=== PATIENT | female | born 1990 | race Caucasian/White ===

== ENCOUNTER → 2019-11-15 10:18 | Outpatient (CLI) | payer OTHER, SELFPAY ==
--- NOTE | 2019-11-15 10:29 | US_ITS ---
STUDY: ABDOMINAL ULTRASOUND REASON FOR EXAM: Female, 29 years old. ABD PAIN, RLQ PAIN TECHNIQUE: Transabdominal ultrasound was performed with real-time and static pruitt scale imaging. TECHNICAL QUALITY: Adequate. COMPARISON: None. FINDINGS: Liver: The liver measures 15.5 cm. There is normal echogenicity of the liver. The bile ducts are within normal limits. There is hepatic color flow. The direction of portal flow is hepatopetal. There is no demonstrated mass lesion. Portal vein measurement: Gallbladder: Normal distended gallbladder. The gallbladder wall measures 1.5 mm. There is a negative sonographic Aldana''s sign. There is no pericholecystic fluid. There are no gallstones. Common Bile Duct (C.B.D.): The common bile duct measures 3.4 mm. Pancreas: Normal size of the head, body and tail of the pancreas. There is normal echogenicity of the pancreas. There is no demonstrated pancreatic mass or cyst. Spleen: Normal size of the spleen. The spleen measures 10.5 cm x 3.1 cm x 4.5 cm. Right Kidney: Normal size of the right kidney. The right kidney measures 10.5 cm x 5.1 cm x 3.4 cm. Normal renal cortex. The right cortex measures 1.0 cm. There is no demonstrated renal mass or cyst. There is no right hydronephrosis. Left Kidney: Normal size of the left kidney. The left kidney measures 10.7 cm x 5.9 cm x 5.9 cm. Normal renal cortex. The left cortex measures 1.7 cm. There is no demonstrated renal mass or cyst. There is no left hydronephrosis. Aorta: Unremarkable I.V.C.: The IVC is patent. There is no ascites. US/Abdomen Complete IMPRESSION: Normal abdominal ultrasound examination. Electronically Signed: Rupert Smith, at 13:47 EDT , Service support ,
--- NOTE | 2019-11-15 10:34 | US_ITS ---
STUDY: THYROID ULTRASOUND REASON FOR EXAM: Female, 29 years old. GOITER TECHNIQUE: Ultrasound evaluation of the thyroid was performed with real-time and static pruitt-scale imaging. COMPARISON: None. FINDINGS: RIGHT LOBE: The right lobe of the thyroid gland is slightly enlarged and measures 5.1 cm x 1.2 cm x 0.9 cm. There is a homogeneous echotexture. There is a 3 mm x 3 mm x 3 mm solid hypoechoic nodule in the lower. LEFT LOBE: The left lobe of the thyroid gland measures 4.5 cm x 1.4 cm x 1.0 cm. There is a homogeneous echotexture. Numerous small cysts are seen. The largest measures 2 mm x 2 mm x 15 mm and is in the mid pole of the lobe. ISTHMUS: The isthmus measures 2.0 mm. The regional lymph nodes are normal. US/Thyroid IMPRESSION: Bilateral thyroid nodules. Electronically Signed: Rupert Smith, at 15:30 EDT , Service support ,
--- NOTE | 2019-11-15 12:51 | US_ITS ---
STUDY: ULTRASOUND OF THE FEMALE PELVIS - COMPLETE REASON FOR EXAM: Female, 29 years old. RLQ PAIN LMP: 10/23/2019. TECHNIQUE: Transabdominal and Transvaginal TECHNICAL QUALITY: Adequate. COMPARISON: None. FINDINGS: The uterus is anteverted and is tilted to the left side of the pelvis. The uterus measures 7.6 cm x 4.3 cm x 3.3 cm. Normal uterine cervix. The endometrium measures 5.0 mm in thickness, and is . There is no demonstrated endometrial mass. There is no demonstrated myometrial mass. I.U.D. - The patient does not have an I.U.D. The right ovary is visualized. The right ovary measures 3 cm x 2.5 cm x 2.5 cm. There is a 2.2 cm x 2.2 cm x 1.7 cm complex cyst in the right ovary. Follow-up is recommended. There is no visualized right adnexal mass or complex lesion. There is normal arterial and normal venous vascularity. The left ovary is visualized. The left ovary measures 2 cm x 1.3 cm x 2.6 cm. There is no left ovarian cyst or ovarian mass. There is no visualized left adnexal mass or complex lesion. There is normal arterial and normal venous vascularity. There is no fluid in the cul-de-sac. US/Transvaginal Non- IMPRESSION: 2.2 cm x 2.2 cm x 1.7 cm complex cyst in the right ovary. Sonographic follow-up is recommended. Electronically Signed: Rupert Smith, at 15:13 EDT , Service support ,
== END ==
PROVIDERS: PCP Nurse Practitioner; Referring Provider Nurse Practitioner; Visit Provider Nurse Practitioner
DX: E04.9 Nontoxic goiter, unspecified (principal); R10.31 Right lower quadrant pain
CPT/HCPCS: 76536; 76700; 76830; 93976

== ENCOUNTER → 2019-12-24 | Outpatient (CLI) | payer OTHER, SELFPAY ==
[2019-12-23 13:04] VITALS: BMI 27.1
[2019-12-24 17:53] LABS: Estradiol 75.2 pg/mL; Follicle Stimulating Hormone 5.9 mIU/mL; Luteinizing Hormone 5.6 mIU/mL
[2019-12-25 08:51] LABS: Rubella IgG 42.2 IU/mL
[2019-12-27 01:42] LABS: V-Zoster IgG (Immunity) 931 index (Immune >165)
== END | disposition home or self-care (01) ==
LOC: WOBLAB 16:15
PROVIDERS: PCP Nurse Practitioner; Visit Provider Student in an Organized Health Care Education/Training Program
DX: N97.9 Female infertility, unspecified (principal)
CPT/HCPCS: 36415; 82670; 83001; 83002; 86762; 86787

== ENCOUNTER → 2020-01-10 | Outpatient (CLI) | payer OTHER, SELFPAY ==
[2019-12-23 13:04] VITALS: BMI 27.1
[2020-01-10 11:04] LABS: Progesterone Level 13.27 ng/mL (See Comment)
== END | disposition home or self-care (01) ==
LOC: WOBLAB 09:49
PROVIDERS: PCP Nurse Practitioner; Visit Provider Student in an Organized Health Care Education/Training Program
DX: N92.6 Irregular menstruation, unspecified (principal)
CPT/HCPCS: 36415; 84144

== ENCOUNTER → 2022-12-27 | Outpatient (CLI) | payer OTHER, SELFPAY ==
--- NOTE | 2022-12-27 12:43 | US_ITS ---
STUDY: THYROID ULTRASOUND REASON FOR EXAM: Female, 32 years old. NONTOXIC MULTINODULAR GOITER TECHNIQUE: Ultrasound evaluation of the thyroid was performed with real-time and static pruitt-scale imaging. COMPARISON: Comparison is made with prior study November 15, 2019. FINDINGS: RIGHT LOBE: The right lobe of the thyroid gland measures 4.8 cm x 1.3 cm x 1.5 cm. There is a homogeneous echotexture. 5 mm x 4 mm x 4 mm solid/cystic nodule in the lower pole. Previously, it measured 3 mm x 3 mm x 3 mm LEFT LOBE: The left lobe of the thyroid gland measures 4 cm x 1.3 cm x 1.1 cm. There is a homogeneous echotexture. A 3 mm x 2 mm x 1 mm solid/cystic nodule in the lower pole. There has been essentially no change. ISTHMUS: The isthmus measures 1 mm. The regional lymph nodes are normal. US/Thyroid IMPRESSION: Essentially stable examination. Electronically Signed: Rupert Smith MD at 13:29 EDT ,
== END | disposition home or self-care (01) ==
LOC: US 12:33
PROVIDERS: PCP Nurse Practitioner Family; Referring Provider Nurse Practitioner Family; Visit Provider Nurse Practitioner Family
DX: E04.2 Nontoxic multinodular goiter (principal)
CPT/HCPCS: 76536

== ENCOUNTER → 2023-06-19 | Outpatient (CLI) | payer OTHER, SELFPAY ==
--- OUTSIDE RECORDS SUMMARY | 2023-06-19 20:37 | XMS RPT_ITS | CCD ---
Author Name Unknown Address [address] [place] [address] Organization [facility] Care Team Providers Care Light Oil Operator Name Role Phone Steph Rausch Unavailable Marvin Horan Unavailable Darryl Aly Unavailable Unavailable Tiffanie Whitfield Unavailable Manuel Covarrubias Unavailable Unavailable Unavailable CHARLI Kimblal Unavailable Unavailable Jessie Lynch Unavailable Ligia Mathis Unavailable Unavailable Steph Rausch CNP Unavailable Tiffanie Whitfield Unavailable Brian Abreu Unavailable Dr. Marvin Horan Unavailable Manuel Covarrubias MD Unavailable Yanira Aldana MA Unavailable Unavailable Jovita Grady LPN Unavailable Unavailable Unavailable Unavailable Ligia Mathis LPN Unavailable Unavailable Jessie Lynch MD Unavailable Steph Rausch Unavailable Jessie Lynch MD Unavailable Steph Rausch Unavailable SELF, SELF Referring Unavailable EDISON GAGE Attending Unavailable EDISON GAGE Attending Unavailable SELF, SELF Referring Unavailable EDISON GAGE Attending Unavailable SELF, SELF Referring Unavailable EDISON GAGE Attending Unavailable SELF, SELF Referring Unavailable SELF, SELF Referring Unavailable EDISON GAGE Attending Unavailable Darryl Vallejo LPN Unavailable Unavailable Sarah Moe CNP Unavailable Sarah Moe CNP Unavailable Bettina Cardenas Unavailable Unavailable Primary Care Provider UnavailJENNIFER Wells Attending Unavail able Sofie Hendrix CMA Unavailable Unavailable Tiffanie Whitfield Unavailable Steph Rausch Referring Unavailable Sarah Moe CNP Attending Unavailable Sarah Moe CNP Consulting Unavailable Allergies Allergy Classification Reported Allergen(s) Allergy Type Date of Onset Reaction(s) Facility (20 sources) Penicillins; Translations: [Penicillins] Allergy to substance (finding) [address] [facility] Work Phone: Medications Current Medications Medication Drug Class(es) Dates Sig (Normalized) Sig (Original) 24 hr amphetamine aspartate 5 mg / amphetamine sulfate 5 mg / dextroamphetamine saccharate 5 mg / dextroamphetamine sulfate 5 mg extended release oral capsule (20 sources) Central Nervous System Stimulant Start: 01-27-2023 Adderall XR 20 mg oral Capsule, Extended Release 24 hr 1 Capsule 2 times per day approximately 6 hours apart for 0 days Quantity: 60 {Capsule} Refills: 0 Ordered: 27-Jan-2023 Cris NAVARRETE, Jessie Vale Start : 27-Jan-2023 Active Comments: sixtyfill for 03-25-23 Completed/Discontinued Medications Medication Drug Class(es) Dates Sig (Normalized) Sig (Original) cholecalciferol 0.05 mg oral capsule (20 sources) Vitamin D Start: 03-08-2021 End: 06-18-2021 take 1 capsule by mouth once daily Vitamin D3 50 MCG (1999 UT) Oral Capsule 1 (one) Capsule daily for 0 days Quantity: 30 {Capsule} Refills: 0 Ordered: 18-Jun-2021 Ligia Mathis LPN Start : 08-Mar-2021 End : 18-Jun-2021 Inactive ciprofloxacin 500 mg oral tablet (16 sources) Quinolone Antimicrobial Start: 01-25-2022 End: 01-30-2022 take 1 tablet by mouth twice daily Cipro 500 MG Oral Tablet 1 (one) Tablet bid for 5 days Quantity: 10 {Tablet} Refills: 0 Ordered: 25-Jan-2022 Ligia Mathis LPN Start : 25-Jan-2022 End : 30-Jan-2022 Inactive ergocalciferol 1.25 mg oral capsule (20 sources) Provitamin D2 Compound Start: 11-25-2019 End: 02-23-2021 Ergocalciferol 1.25 MG (48299 UT) Oral Capsule 1 (one) Capsule twice weekly x 3 months for 0 days Quantity: 24 {Capsule} Refills: 0 Ordered: 23-Feb-2021 Jovita Grady LPN Start : 25-Nov-2019 End : 23-Feb-2021 Inactive FLUoxetine 20 mg oral capsule (20 sources) Serotonin Reuptake Inhibitor Start: 11-08-2019 End: 02-23-2021 take 2 capsules by mouth once daily FLUoxetine HCl 20 MG Oral Capsule 2 (two) Capsule daily for 0 days Quantity: 60 {Capsule} Refills: 3 Ordered: 23-Feb-2021 Jovita Grady LPN Start : 08-Nov-2019 End : 23-Feb-2021 Inactive lisdexamfetamine dimesylate 50 mg oral capsule (11 sources) Central Nervous System Stimulant Start: 09-07-2022 End: 10-31-2022 take 1 capsule by mouth before breakfast Vyvanse 50 mg oral capsule 1 Capsule every morning for 0 days Quantity: 30 {Capsule} Refills: 0 Ordered: 07-Sep-2022 Jessie Lynch MD Start : 07-Sep-2022 End : 31-Oct-2022 Discontinued Comments: thirty Problems Active Problems Problem Classification Problem Date Documented Da te Episodic/Chronic Abdominal pain (20 sources) Right lower quadrant pain; Translations: [Right lower quadrant abdominal pain] 11-08-2019 Episodic Past or Other Problems Problem Classification Problem Date Documented Da te Episodic/Chronic Deficiency and other anemia (20 sources) Deficiency and other anemia Diabetes mellitus without complication (10 sources) Diabetes mellitus without complication Mood disorders (20 sources) Mood disorders Ovarian cyst (14 sources) Complex cyst of right ovary; Translations: [Complex cyst of right ovary] 11-20-2019 Unclassified (20 sources) Abortions/Miscarriages ; Translations: [Abortions/Miscarriage s] 11-08-2019 Results Test Name Value Interpretation Reference Range Facil ity Vital Signs Date Time Vital Sign Value Performing Clinician Facility 07-13-2022 11:16-0400 Body height 168.28 cm Ligia Slarb SOCIAL WORKER [employer]IN[employer]VENT[employer] [facility] Work Phone: 07-13-2022 11:16-0400 Body mass index (BMI) [Ratio] 32.68 kg/m2 Ligia Mathis SOCIAL WORKER [employer]IN[employer] PREVENT[employer] [facility] Work Phone: 07-13-2022 11:16-0400 Body surface area Derived from formula 2.02 m2 Ligia Mathis SOCIAL WORKER [employer]IN[employer] PRE[employer] [facility] Work Phone: 07-13-2022 11:16-0400 Body temperature 97.8 [degF] Ligia Mathis SOCIAL WORKER [employer]IN[employer] [facility] Work Phone: Encounters Encounter Date Encounter Type Care Provider Facility Start: 01-27-2023 End: 01-27-2023 Office outpatient visit 10 minutes Sarah Moe CNP Work Phone: [facility] Start: 12-21-2022 End: 01-02-2023 Phone Encounter Sarah Moe CNP Work Phone: [facility] Start: 12-21-2022 Review Sarah Moe CNP Work Phone: [facility] Start: 12-21-2022 End: 12-21-2022 Annotation/Addendum Sarah Moe CNP Work Phone: [facility] Start: 10-31-2022 End: 10-31-2022 Office outpatient visit 10 minutes Sarah Moe CNP Work Phone: [facility] Start: 07-13-2022 Review Sarah Moe CNP Work Phone: [facility] Start: 07-13-2022 End: 07-25-2022 Office outpatient visit 15 minutes Sarah Moe CNP Work Phone: [facility] Start: 07-05-2022 ambulatory Steph Cosby [facility] Start: 07-05-2022 End: 07-05-2022 Office outpatient visit 10 minutes Sarah Moe CNP Work Phone: [facility] Start: 05-06-2022 End: 05-06-2022 Phone Encounter Sarah Moe CNP Work Phone: [facility] Start: 02-09-2022 End: 02-09-2022 ambulatory JENNIFER CACERES Facility:[facility] Start: 02-09-2022 End: 02-09-2022 Patient encounter procedure Jennifer Caceres MD Work Phone: OB/Gynecology Procedures Date Procedure Procedure Detail Performing Clinician Start: 12-27-2022 End: 12-27-2022 Thyroid Procedure Note: See Note; NOTES: [facility] Imaging Services [address] [place] [address] Thyroid MR#: [id number] Acct: [id number] Name: EL VALVERDE Rep #: [id number] : 1990 F 32 From: Rupert nettles MD PCP: TARIK Prescott Status: [facility] CLI Study: Thyroid Date of Exam: 12/27/22 Exam# [id number] Ordering Dr: Sarah Moe NP-C [id number] STUDY: THYROID ULTRASOUND REASON FOR EXAM: Female, 32 years old. NONTOXIC MULTINODULAR GOITER TECHNIQUE: Ultrasound evaluation of the thyroid was performed with real-time and static pruitt-scale imaging. COMPARISON: Comparison is made with prior study November 15, 2019. FINDINGS: RIGHT LOBE: The right lobe of the thyroid gland measures 4.8 cm x 1.3 cm x 1.5 cm. There is a homogeneous echotexture. 5 mm x 4 mm x 4 mm solid/cystic nodule in the lower pole. Previously, it measured 3 mm x 3 mm x 3 mm LEFT LOBE: The left lobe of the thyroid gland measures 4 cm x 1.3 cm x 1.1 cm. There is a homogeneous echotexture. A 3 mm x 2 mm x 1 mm solid/cystic nodule in the lower pole. There has been essentially no change. ISTHMUS: The isthmus measures 1 mm. The regional lymph nodes are normal. US/Thyroid IMPRESSION: Essentially stable examination. Electronically Signed: Rupert Smith MD at 13:29 EDT Reading Location ID and State: [address] [place] [address] , Service support , CC: TARIK Moe Tire Builder Heavy Service: Signed Sarah Moe BRINE SUPERVISOR Work Phone: Start: 12-23-2019 End: 12-24-2019 Surgery Visit Report Comments: See Note; NOTES: [facility] [address] [place], [place] [address]. [address] [place] [address] OFFICE VISIT Date of Service: 12/23/19 MR#: [id number] Acct: [id number] Name: EL PEREZ Rep #: [id number] : 1990 Provider: Dr. Manuel miller MD Age/Sex: 29/F Location: [facility] Status: Signed Intake Vital Signs 12/23/19 Height 5 ft 6 in 12/23/19 Weight: 168 lb 9 oz 12/23/19 BP 114/78 12/23/19 Blood Pressure Location Rt brachial 12/23/19 Position Sitting 12/23/19 Respiration 16 12/23/19 Pulse 79 12/23/19 Temp 97.7 F L 12/23/19 Temp Source Temporal 12/23/19 Pulse Oximetry (%) 100 12/23/19 Oxygen Delivery Method room air Intake Visit Reasons: THYROID NODULES Chief Complaint: thyroid nodules Resource Conservation Manager Required: No Is patient in pain?: No Allergies Penicillins Allergy (Mild, Verified 12/23/19 13:05) hives Medications dextroamphetamine-amphetam ine 5 mg tablet tab PO 12/23/19 [History Confirmed 12/23/19] ergocalciferol (vitamin D2) 1,250 mcg (50,000 unit) capsule cap PO 12/23/19 [History Confirmed 12/23/19] fluoxetine 20 mg capsule cap PO 12/23/19 [History Confirmed 12/23/19] Is last menstrual period known: No Post menopausal: No Patient : No PFSH Medical History Anxiety and depression (Acute) Back pain (Acute) Thyroid nodule (Acute) Surgical History History of dilation and curettage (Acute 2010) Family History Father Heart disease Diabetes Cancer skin Mother Thyroid disorder Cancer thyroid HPI HPI HPI: EL PEREZ, is a 29 F who presents to the office today for HPI HPI HPI: EL PEREZ, is a 29 F who presents to the office today for For evaluation of an abnormal thyroid ultrasound. Patient had a thyroid ultrasound completed at [facility] on 11/15/2019. This showed there to be a 3 mm solid nodule on the right lobe and a 2 mm nodule in the left lobe. There was a typo mistake in the report stating that it was 15 mm but in reviewing the actual films it was 1.5 mm. Patient does have a family history of thyroid cancer in her mother. ROS General General: Yes fatigue; no weight change, appetite, colon cancer, breast cancer or weakness HEENT HEENT: Yes swollen glands; no difficulty swallowing, eye injury, eye surgery or hoarseness Endo Endocrine: No thyroid disease, diabetes mellitus, thyroid cancer, Hair loss, heat intolerance or cold intolerance Musc Musculoskeletal: Yes back problems; no arthritis, rheumatoid arthritis, gout or joint pain Cardio Cardiovascular: No murmur, pacemaker, heart disease, atrial fibrillation, high blood pressure, heart attack, heart stent, palpitations, shortness of breat with exertion or chest pain Psych Psychiatric: Yes depression and anxiety; no hearing voices Resp Respiratory: No shortness of breath, No sleep apnea, No cough, No COPD, No asthma, No emphysema, No wheezing Gastro Gastrointestinal: Yes abdominal pain, No nausea or vomiting, No diarrhea, No constipation, No blood in stool, No acid reflux, No hemorrhoids, No ulcers, No gallbladder problem, No black,tarry stools Louie Hematologic: No blood thinners, No blood disorders, No bleeding, No anemia, No blood clots Neuro Neurologic: No weakness Exam Const General: no acute distress, well developed, well hydrated Orientation: oriented to person, oriented to place, oriented to time [facility] Head: normocephalic, atraumatic Ears: external ears normal Mouth: moist mucous membranes Other: Thyroid Exam: No hard nodules are palpated.No lymphadenopathy is palpated. Eyes Sclera: sclerae normal Pupils: normal by confrontation Neck Neck: no lymphadenopathy noted Neck mass: No Thyroid: thyroid normal, symmetrical Chest Chest palpation inspection: normal inspection of the chest Cardio Heart Sounds: no murmurs Assessment Plan Problems 1. Non-toxic multinodular goiter E04.2 Plan At this point there is nothing to biopsy here. She does not have a 15 mm nodule it is 1.5 mm. Given her history I think yearly thyroid ultrasounds are appropriate. And if her nodules get little bit larger than a half a centimeter then I think at least re-looking at this and possibly attempting a fine-needle aspiration would be appropriate. Coding Level of Care Code Off vis,new,level 3 Diagnoses Non-toxic multinodular goiter E04.2 12/24/19 1207 <Electronically signed by Manuel Nunez MD> Date Manuel Nunez MD Cosigner Signature: Date (if applicable) CC: MANAGER GASParvin Rausch Start: 11-15-2019 End: 11-15-2019 Transvaginal Non- Comments: See Note; NOTES: [facility] Imaging Services [address] [place] [address] Transvaginal Non- MR#: [id number] Acct: [id number] Name: EL PEREZ Rep #: [id number] : 1990 F 29 From: Rupert nettles MD PCP: TARIK Zimmerman Status: REG CLI Study: Transvaginal Non- Date of Exam: Exam# [id number] Ordering Dr: Steph Rausch STUDY: ULTRASOUND OF THE FEMALE PELVIS - COMPLETE REASON FOR EXAM: Female, 29 years old. RLQ PAIN LMP: 10/23/2019. TECHNIQUE: Transabdominal and Transvaginal TECHNICAL QUALITY: Adequate. COMPARISON: None. FINDINGS: The uterus is anteverted and is tilted to the left side of the pelvis. The uterus measures 7.6 cm x 4.3 cm x 3.3 cm. Normal uterine cervix. The endometrium measures 5.0 mm in thickness, and is . There is no demonstrated endometrial mass. There is no demonstrated myometrial mass. I.U.D. - The patient does not have an I.U.D. The right ovary is visualized. The right ovary measures 3 cm x 2.5 cm x 2.5 cm. There is a 2.2 cm x 2.2 cm x 1.7 cm complex cyst in the right ovary. Follow-up is recommended. There is no visualized right adnexal mass or complex lesion. There is normal arterial and normal venous vascularity. The left ovary is visualized. The left ovary measures 2 cm x 1.3 cm x 2.6 cm. There is no left ovarian cyst or ovarian mass. There is no visualized left adnexal mass or complex lesion. There is normal arterial and normal venous vascularity. There is no fluid in the cul-de-sac. US/Transvaginal Non- IMPRESSION: 2.2 cm x 2.2 cm x 1.7 cm complex cyst in the right ovary. Sonographic follow-up is recommended. Electronically Signed: Rupert Smith, at 15:13 EDT , Service support , CC: TARIK Rausch Tire Builder Heavy Service: Signed Steph Rausch Work Phone: Start: 11-15-2019 End: 11-15-2019 Thyroid Comments: See Note; NOTES: [facility] Imaging Services [address] [place] [address] Thyroid MR#: [id number] Acct: [id number] Name: EL PEREZ Rep #: [id number] : 1990 F 29 From: Rupert nettles MD PCP: TARIK Zimmerman Status: REG CLI Study: Thyroid Date of Exam: 11/15/19 Exam# [id number] Ordering Dr: Steph Rausch STUDY: THYROID ULTRASOUND REASON FOR EXAM: Female, 29 years old. GOITER TECHNIQUE: Ultrasound evaluation of the thyroid was performed with real-time and static pruitt-scale imaging. COMPARISON: None. FINDINGS: RIGHT LOBE: The right lobe of the thyroid gland is slightly enlarged and measures 5.1 cm x 1.2 cm x 0.9 cm. There is a homogeneous echotexture. There is a 3 mm x 3 mm x 3 mm solid hypoechoic nodule in the lower. LEFT LOBE: The left lobe of the thyroid gland measures 4.5 cm x 1.4 cm x 1.0 cm. There is a homogeneous echotexture. Numerous small cysts are seen. The largest measures 2 mm x 2 mm x 15 mm and is in the mid pole of the lobe. ISTHMUS: The isthmus measures 2.0 mm. The regional lymph nodes are normal. US/Thyroid IMPRESSION: Bilateral thyroid nodules. Electronically Signed: Rupert Smith, at 15:30 EDT , Service support , CC: TARIK Rausch Tire Builder Heavy Service: Signed Stpeh Rausch Work Phone: Start: 11-15-2019 End: 11-15-2019 Abdomen Complete Comments: See Note; NOTES: [facility] Imaging Services [address] [place] [address] Abdomen Complete MR#: [id number] Acct: [id number] Name: EL PEREZ Rep #: [id number] : 1990 F 29 From: Rupert nettles MD PCP: TARIK Zimmerman Status: REG CLI Study: Abdomen Complete Date of Exam: 11/15/19 Exam# [id number] Ordering Dr: Steph Rausch STUDY: ABDOMINAL ULTRASOUND REASON FOR EXAM: Female, 29 years old. ABD PAIN, RLQ PAIN TECHNIQUE: Transabdominal ultrasound was performed with real-time and static pruitt scale imaging. TECHNICAL QUALITY: Adequate. COMPARISON: None. FINDINGS: Liver: The liver measures 15.5 cm. There is normal echogenicity of the liver. The bile ducts are within normal limits. There is hepatic color flow. The direction of portal flow is hepatopetal. There is no demonstrated mass lesion. Portal vein measurement: Gallbladder: Normal distended gallbladder. The gallbladder wall measures 1.5 mm. There is a negative sonographic Aldana''s sign. There is no pericholecystic fluid. There are no gallstones. Common Bile Duct (C.B.D.): The common bile duct measures 3.4 mm. Pancreas: Normal size of the head, body and tail of the pancreas. There is normal echogenicity of the pancreas. There is no demonstrated pancreatic mass or cyst. Spleen: Normal size of the spleen. The spleen measures 10.5 cm x 3.1 cm x 4.5 cm. Right Kidney: Normal size of the right kidney. The right kidney measures 10.5 cm x 5.1 cm x 3.4 cm. Normal renal cortex. The right cortex measures 1.0 cm. There is no demonstrated renal mass or cyst. There is no right hydronephrosis. Left Kidney: Normal size of the left kidney. The left kidney measures 10.7 cm x 5.9 cm x 5.9 cm. Normal renal cortex. The left cortex measures 1.7 cm. There is no demonstrated renal mass or cyst. There is no left hydronephrosis. Aorta: Unremarkable I.V.C.: The IVC is patent. There is no ascites. US/Abdomen Complete IMPRESSION: Normal abdominal ultrasound examination. Electronically Signed: Rupert Smith, at 13:47 EDT , Service support , CC: TARIK Rausch Tire Builder Heavy Service: Signed Steph Rausch Work Phone: D&C Darryl Aly Plan of Treatment Date Care Activity Detail Author Start: 07-13-2022 Procedure Education Eprescribed prescriptions (G8553) [facility] Work Phone: Start: 07-13-2022 Urnls dip stick/tablet reagent auto microscopy Urinalysis, Complete W/ Microscopic Examination with reflex to urine culture, routine (80986) [facility] Work Phone: Start: 02-09-2022 End: 02-09-2023 PELVIC US WHI PELVIC US WHI Anc Imaging Routine Adnexal fullness Pelvic pain in female Expected: 02/09/2022, Expires: 02/09/2023 [facility] Work Phone: Payers Date Payer Category Payer Unknown 2021 Unknown [id number] 1990 Unknown [id number] Social History Date Type Detail Facility Alcohol Use Alcohol Use [facility] Work Phone: Clinical Notes 02-09-2022 Jennifer Caceres MD - 02/09/2022 9:06 AM EDT Note Date & Type Note Facility 02-09-2022 Note HNO ID: [id number] Author: Jennifer Caceres MD Service: ? Author Type: Physician Type: Progress Notes Filed: 02/09/2022 10:02 AM Note Text: Space Technologist offered: Patient declines. HPI: El Valverde is a 31 year old female with a hx of IBS and recurrent UTIs presents for vaginal bleeding. Pt had a UTI January 19 and was given Cipro. While being treated for the UTI, she began having light bleeding for 3 days. Reports this is the only episode of irregular bleeding. Reports her period is moderate flow, occurs every 28 days, and last for 5-6 days. She also reports RLQ pain with radiation to the LLQ. She describes the pain as sharp and is intermittent. She notes the pain is worsened by laying down or by applying pressure to the area. Reports having an ultrasound and an abdominal CT that showed an ovarian cyst that resolved on its own. Denies taking anything for the pain. Denies using control. Denies irregular bleeding in the past. Denies any vaginal discharge, dysuria or fevers. Pt reports no vaginal odor, discharge, itching or burning but does request std screening. Pt reports no painful sex or bleeding with sex. Pt offers no other concerns today. Patient reports is not taking any hormones for contraception and declines any hormonal therapy or contraception options today. OB History No obstetric history on file. Grants Officer History LMP: 01/19/2022, Having periods Age at Menarche: Age at First : Age at Menopause: Grants Officer History Comments: Sexual Activity: Yes; Male Contraception: No contraception data on record No past medical history on file. PAST SURGICAL HISTORY Procedure Laterality Date DANDC, DIAG AND/OR THERAPEUTIC 2009 missed ab No family history on file. Social History Tobacco Use Smoking status: Never Smokeless tobacco: Never Vaping Use Vaping Use: Never used Substance Use Topics Drug use: Never Current Outpatient Medications Medication Sig TRULANCE 3 mg tablet dextroamphetamine-amphetamine (ADDERALL) 5 mg tablet Take 5 mg by mouth. No current facility-administered medications for this visit. Allergies As of Date: 02/09/2022 Allergen Noted Reaction PENICILLINS 12/23/2019 Hives Fully Assessed 02/09/2022 REVIEW OF SYSTEMS Abdomen: No bloating, early satiety, indigestion, or increased flatulence. No abdominal pain, nausea, vomiting, diarrhea, or constipation. Bladder: No dysuria, gross hematuria, urinary frequency, urinary urgency, or incontinence. Breast: No breast lumps, nipple d/c, overlying skin changes, redness or skin retraction. Expanded ROS: N/A Allergies and current medication updated:Yes EXAM: BP 100/60 Wt 205 lb (93.0kg) LMP 01/19/2022 GENERAL: pleasant, female in no apparent distress HEENT: Normocephalic, atraumatic, mucus membranes moist, and no lesions NECK: full range of motion DERMATOLOGY: Normal, without lesions, non-icteric, and non-hirsute ABDOMEN: soft, non-tender, and no masses PELVIC: external genitalia normal, normal Bartholin's glands, urethra, Western's glands, no vulvar lesions, no cervical lesions, good vaginal support, physiologic discharge present, normal appearing perineal body and perianal region BIMANUAL: uterus normal size, shape and consistency and right adnexal fullness, tender to palpation NEURO: alert and oriented x3,exam grossly non-focal EXTREMITIES: normal ASSESSMENT AND PLAN: Encounter Diagnosis ICD-10-CM 1. Intermenstrual bleeding N92.3 2. Pelvic pain in female R10.2 PELVIC US WHI 3. Adnexal fullness N94.9 PELVIC US WHI 4. Encounter for screening for malignant neoplasm of cervix Z12.4 PAP FLUID CERVICAL SCREENING 5. Special screening examination for human papillomavirus (HPV) Z11.51 PAP FLUID CERVICAL SCREENING 6. Screen for STD (sexually transmitted disease) Z11.3 GC/CHLAMYDIA DNA DET 7. Reviewed causes of abnormal intermenstrual eating. Since there has only been one episode I do not feel that a full work-up is necessary at this time. Patient will continue to monitor and if that happens again to notify the office. We discussed her pelvic pain and possible right adnexal fullness recommend pelvic ultrasound to evaluate. Medical Decision Making: Problems: Moderate: New problem with uncertain prognosis Data: Unique test(s) ordered: 3+ Risk: Low: Low risk from testing/treatment Medical Decision Making Level: 4 - Moderate Jennifer Ireland MD [facility] 02-09-2022 History of Present illness Narrative Space Technologist offered: Patient declines. HPI: El Valverde is a 31 year old female with a hx of IBS and recurrent UTIs presents for vaginal bleeding. Pt had a UTI January 19 and was given Cipro. While being treated for the UTI, she began having light bleeding for 3 days. Reports this is the only episode of irregular bleeding. Reports her period is moderate flow, occurs every 28 days, and last for 5-6 days. She also reports RLQ pain with radiation to the LLQ. She describes the pain as sharp and is intermittent. She notes the pain is worsened by laying down or by applying pressure to the area. Reports having an ultrasound and an abdominal CT that showed an ovarian cyst that resolved on its own. Denies taking anything for the pain. Denies using control. Denies irregular bleeding in the past. Denies any vaginal discharge, dysuria or fevers. Pt reports no vaginal odor, discharge, itching or burning but does request std screening. Pt reports no painful sex or bleeding with sex. Pt offers no other concerns today. Patient reports is not taking any hormones for contraception and declines any hormonal therapy or contraception options today. OB History No obstetric history on file. [employer] History LMP: 01/19/2022, Having periods Age at Menarche: Age at First : Age at Menopause: [employer] History Comments: Sexual Activity: Yes; Male Contraception: No contraception data on record No past medical history on file. PAST SURGICAL HISTORY Procedure Laterality Date D&C, DIAG AND/OR THERAPEUTIC 2009 missed ab No family history on file. Social History Tobacco Use Smoking status: Never Smokeless tobacco: Never Vaping Use Vaping Use: Never used Substance Use Topics Drug use: Never Current Outpatient Medications Medication Sig TRULANCE 3 mg tablet dextroamphetamine-amphetamine (ADDERALL) 5 mg tablet Take 5 mg by mouth. No current facility-administered medications for this visit. Allergies As of Date: 02/09/2022 Allergen Noted Reaction PENICILLINS 12/23/2019 Hives Fully Assessed 02/09/2022 REVIEW OF SYSTEMS Abdomen: No bloating, early satiety, indigestion, or increased flatulence. No abdominal pain, nausea, vomiting, diarrhea, or constipation. Bladder: No dysuria, gross hematuria, urinary frequency, urinary urgency, or incontinence. Breast: No breast lumps, nipple d/c, overlying skin changes, redness or skin retraction. Expanded ROS: N/A Allergies and current medication updated:Yes EXAM: BP 100/60 Wt 205 lb (93.0kg) LMP 01/19/2022 GENERAL: pleasant, female in no apparent distress HEENT: Normocephalic, atraumatic, mucus membranes moist, and no lesions NECK: full range of motion DERMATOLOGY: Normal, without lesions, non-icteric, and non-hirsute ABDOMEN: soft, non-tender, and no masses PELVIC: external genitalia normal, normal Bartholin's glands, urethra, Western's glands, no vulvar lesions, no cervical lesions, good vaginal support, physiologic discharge present, normal appearing perineal body and perianal region BIMANUAL: uterus normal size, shape and consistency and right adnexal fullness, tender to palpation NEURO: alert and oriented x3,exam grossly non-focal EXTREMITIES: normal ASSESSMENT AND PLAN: Encounter Diagnosis ICD-10-CM 1. Intermenstrual bleeding N92.3 2. Pelvic pain in female R10.2 PELVIC US WHI 3. Adnexal fullness N94.9 PELVIC US WHI 4. Encounter for screening for malignant neoplasm of cervix Z12.4 PAP FLUID CERVICAL SCREENING 5. Special screening examination for human papillomavirus (HPV) Z11.51 PAP FLUID CERVICAL SCREENING 6. Screen for STD (sexually transmitted disease) Z11.3 GC/CHLAMYDIA DNA DET 7. Reviewed causes of abnormal intermenstrual eating. Since there has only been one episode I do not feel that a full work-up is necessary at this time. Patient will continue to monitor and if that happens again to notify the office. We discussed her pelvic pain and possible right adnexal fullness recommend pelvic ultrasound to evaluate. Medical Decision Making: Problems: Moderate: New problem with uncertain prognosis Data: Unique test(s) ordered: 3+ Risk: Low: Low risk from testing/treatment Medical Decision Making Level: 4 - Moderate Jennifer Ireland MD documented in this encounter [facility] Name Dates Details Patient Instructions Indication:Nonsmoker Start:08-Mar-2021 Instruction Type:Provider Instructions for Treatment How to Access Over [address] Femalesa [employer]udev Online using Patient Portal and 3rd [employer] Apps Indication:Nonsmoker Start:08-Mar-2021 Instruction Type:Patient Education Patient Instructions Indication:BMI 28.0-28.9,adult Start:23-Feb-2021 Instruction Type:Provider Instructions for Treatment How to Access Health Informa tion Online using Patient Portal and [employer]rd [employer] Apps Indication:BMI 28.0-28.9,adult Start:23-Feb-2021 Instruction Type:Patient Education Patient Instructions Indication:ADD (attention deficit disorder) Start:10-Dec-2020 Instruction Type:Provider Instructions for Treatment How to Access Health Informa tion Online using Patient Portal and [employer]rd [employer] Apps Indication:ADD (attention deficit disorder) Start:10-Dec-2020 Instruction Type:Patient Education Patient Instructions Indication:ADD (attention deficit disorder) Start:08-Jun-2020 Instruction Type:Provider Instructions for Treatment How to Access Health Informa tion Online using Patient Portal and [employer]rd [employer] Apps Indication:ADD (attention deficit disorder) Start:08-Jun-2020 Instruction Type:Patient Education How to access health informa tion online Indication:ADD (attention deficit disorder) Start:02-Dec-2019 Instruction Type:Patient Education How to access health informa tion online - Detail Indication:ADD (attention deficit disorder) Start:02-Dec-2019 Instruction Type:Patient Education Patient Instructions Indication:ADD (attention deficit disorder) Start:02-Dec-2019 Instruction Type:Provider Instructions for Treatment How to access health informa tion online Indication:Nonsmoker Start:25-Nov-2019 Instruction Type:Patient Education How to access health informa tion online - Detail Indication:Nonsmoker Start:25-Nov-2019 Instruction Type:Patient Education Patient Instructions Indication:BMI 26.0-26.9,adult Start:25-Nov-2019 Instruction Type:Provider Instructions for Treatment How to access health informa tion online Indication:Anxiety and depression Start:08-Nov-2019 Instruction Type:Patient Education How to access health informa tion online - Detail Indication:Anxiety and depression Start:08-Nov-2019 Instruction Type:Patient Education Patient Instructions Indication:Anxiety and depression Start:08-Nov-2019 Instruction Type:Provider Instructions for Treatment [facility]; [facility] Work Phone: Instructions* Name Dates Details Patient Instructions Indication:Nonsmoker Start:08-Mar-2021 Instruction Type:Provider Instructions for Treatment How to Access Health Informa tion Online using Patient Portal and [employer]rd [employer] Apps Indication:Nonsmoker Start:08-Mar-2021 Instruction Type:Patient Education Patient Instructions Indication:BMI 28.0-28.9,adult Start:23-Feb-2021 Instruction Type:Provider Instructions for Treatment How to Access Health Informa tion Online using Patient Portal and [employer]rd [employer] Apps Indication:BMI 28.0-28.9,adult Start:23-Feb-2021 Instruction Type:Patient Education Patient Instructions Indication:ADD (attention deficit disorder) Start:10-Dec-2020 Instruction Type:Provider Instructions for Treatment How to Access Health Informa tion Online using Patient Portal and [employer]rd [employer] Apps Indication:ADD (attention deficit disorder) Start:10-Dec-2020 Instruction Type:Patient Education Patient Instructions Indication:ADD (attention deficit disorder) Start:08-Jun-2020 Instruction Type:Provider Instructions for Treatment How to Access Health Informa tion Online using Patient Portal and [employer]rd [employer] Apps Indication:ADD (attention deficit disorder) Start:08-Jun-2020 Instruction Type:Patient Education How to access health informa tion online Indication:ADD (attention deficit disorder) Start:02-Dec-2019 Instruction Type:Patient Education How to access health informa tion online - Detail Indication:ADD (attention deficit disorder) Start:02-Dec-2019 Instruction Type:Patient Education Patient Instructions Indication:ADD (attention deficit disorder) Start:02-Dec-2019 Instruction Type:Provider Instructions for Treatment How to access health informa tion online Indication:Nonsmoker Start:25-Nov-2019 Instruction Type:Patient Education How to access health informa tion online - Detail Indication:Nonsmoker Start:25-Nov-2019 Instruction Type:Patient Education Patient Instructions Indication:BMI 26.0-26.9,adult Start:25-Nov-2019 Instruction Type:Provider Instructions for Treatment How to access health informa tion online Indication:Anxiety and depression Start:08-Nov-2019 Instruction Type:Patient Education How to access health informa tion online - Detail Indication:Anxiety and depression Start:08-Nov-2019 Instruction Type:Patient Education Patient Instructions Indication:Anxiety and depression Start:08-Nov-2019 Instruction Type:Provider Instructions for Treatment [facility]; [facility] Work Phone: Instructions* Name Dates Details Patient Instructions Indication:Nonsmoker Start:08-Mar-2021 Instruction Type:Provider Instructions for Treatment How to Access Health Informa tion Online using Patient Portal and [employer]rd [employer] Apps Indication:Nonsmoker Start:08-Mar-2021 Instruction Type:Patient Education Patient Instructions Indication:BMI 28.0-28.9,adult Start:23-Feb-2021 Instruction Type:Provider Instructions for Treatment How to Access Health Informa tion Online using Patient Portal and [employer]rd [employer] Apps Indication:BMI 28.0-28.9,adult Start:23-Feb-2021 Instruction Type:Patient Education Patient Instructions Indication:ADD (attention deficit disorder) Start:10-Dec-2020 Instruction Type:Provider Instructions for Treatment How to Access Health Informa tion Online using Patient Portal and [employer]rd [employer] Apps Indication:ADD (attention deficit disorder) Start:10-Dec-2020 Instruction Type:Patient Education Patient Instructions Indication:ADD (attention deficit disorder) Start:08-Jun-2020 Instruction Type:Provider Instructions for Treatment How to Access Health Informa tion Online using Patient Portal and [employer]rd [employer] Apps Indication:ADD (attention deficit disorder) Start:08-Jun-2020 Instruction Type:Patient Education How to access health informa tion online Indication:ADD (attention deficit disorder) Start:02-Dec-2019 Instruction Type:Patient Education How to access health informa tion online - Detail Indication:ADD (attention deficit disorder) Start:02-Dec-2019 Instruction Type:Patient Education Patient Instructions Indication:ADD (attention deficit disorder) Start:02-Dec-2019 Instruction Type:Provider Instructions for Treatment How to access health informa tion online Indication:Nonsmoker Start:25-Nov-2019 Instruction Type:Patient Education How to access health informa tion online - Detail Indication:Nonsmoker Start:25-Nov-2019 Instruction Type:Patient Education Patient Instructions Indication:BMI 26.0-26.9,adult Start:25-Nov-2019 Instruction Type:Provider Instructions for Treatment How to access health informa tion online Indication:Anxiety and depression Start:08-Nov-2019 Instruction Type:Patient Education How to access health informa tion online - Detail Indication:Anxiety and depression Start:08-Nov-2019 Instruction Type:Patient Education Patient Instructions Indication:Anxiety and depression Start:08-Nov-2019 Instruction Type:Provider Instructions for Treatment [facility]; [facility] Work Phone: Instructions* Name Dates Details Patient Instructions Indication:Nonsmoker Start:18-Jun-2021 Instruction Type:Provider Instructions for Treatment How to Access Health Informa tion Online using Patient Portal and [employer]rd [employer] Apps Indication:Nonsmoker Start:18-Jun-2021 Instruction Type:Patient Education Patient Instructions Indication:Nonsmoker Start:08-Mar-2021 Instruction Type:Provider Instructions for Treatment How to Access Health Informa tion Online using Patient Portal and [employer]rd [employer] Apps Indication:Nonsmoker Start:08-Mar-2021 Instruction Type:Patient Education Patient Instructions Indication:BMI 28.0-28.9,adult Start:23-Feb-2021 Instruction Type:Provider Instructions for Treatment How to Access Health Informa tion Online using Patient Portal and [employer]rd [employer] Apps Indication:BMI 28.0-28.9,adult Start:23-Feb-2021 Instruction Type:Patient Education Patient Instructions Indication:ADD (attention deficit disorder) Start:10-Dec-2020 Instruction Type:Provider Instructions for Treatment How to Access Health Informa tion Online using Patient Portal and [employer]rd [employer] Apps Indication:ADD (attention deficit disorder) Start:10-Dec-2020 Instruction Type:Patient Education Patient Instructions Indication:ADD (attention deficit disorder) Start:08-Jun-2020 Instruction Type:Provider Instructions for Treatment How to Access Health Informa tion Online using Patient Portal and [employer]rd [employer] Apps Indication:ADD (attention deficit disorder) Start:08-Jun-2020 Instruction Type:Patient Education How to access health informa tion online Indication:ADD (attention deficit disorder) Start:02-Dec-2019 Instruction Type:Patient Education How to access health informa tion online - Detail Indication:ADD (attention deficit disorder) Start:02-Dec-2019 Instruction Type:Patient Education Patient Instructions Indication:ADD (attention deficit disorder) Start:02-Dec-2019 Instruction Type:Provider Instructions for Treatment How to access health informa tion online Indication:Nonsmoker Start:25-Nov-2019 Instruction Type:Patient Education How to access health informa tion online - Detail Indication:Nonsmoker Start:25-Nov-2019 Instruction Type:Patient Education Patient Instructions Indication:BMI 26.0-26.9,adult Start:25-Nov-2019 Instruction Type:Provider Instructions for Treatment How to access health informa tion online Indication:Anxiety and depression Start:08-Nov-2019 Instruction Type:Patient Education How to access health informa tion online - Detail Indication:Anxiety and depression Start:08-Nov-2019 Instruction Type:Patient Education Patient Instructions Indication:Anxiety and depression Start:08-Nov-2019 Instruction Type:Provider Instructions for Treatment [facility]; [facility] Work Phone: Instructions* Name Dates Details Patient Instructions Indication:Nonsmoker Start:18-Jun-2021 Instruction Type:Provider Instructions for Treatment How to Access Health Informa tion Online using Patient Portal and [employer]rd [employer] Apps Indication:Nonsmoker Start:18-Jun-2021 Instruction Type:Patient Education Patient Instructions Indication:Nonsmoker Start:08-Mar-2021 Instruction Type:Provider Instructions for Treatment How to Access Health Informa tion Online using Patient Portal and [employer]rd [employer] Apps Indication:Nonsmoker Start:08-Mar-2021 Instruction Type:Patient Education Patient Instructions Indication:BMI 28.0-28.9,adult Start:23-Feb-2021 Instruction Type:Provider Instructions for Treatment How to Access Health Informa tion Online using Patient Portal and [employer]rd [employer] Apps Indication:BMI 28.0-28.9,adult Start:23-Feb-2021 Instruction Type:Patient Education Patient Instructions Indication:ADD (attention deficit disorder) Start:10-Dec-2020 Instruction Type:Provider Instructions for Treatment How to Access Health Informa tion Online using Patient Portal and [employer]rd [employer] Apps Indication:ADD (attention deficit disorder) Start:10-Dec-2020 Instruction Type:Patient Education Patient Instructions Indication:ADD (attention deficit disorder) Start:08-Jun-2020 Instruction Type:Provider Instructions for Treatment How to Access Health Informa tion Online using Patient Portal and [employer]rd [employer] Apps Indication:ADD (attention deficit disorder) Start:08-Jun-2020 Instruction Type:Patient Education How to access health informa tion online Indication:ADD (attention deficit disorder) Start:02-Dec-2019 Instruction Type:Patient Education How to access health informa tion online - Detail Indication:ADD (attention deficit disorder) Start:02-Dec-2019 Instruction Type:Patient Education Patient Instructions Indication:ADD (attention deficit disorder) Start:02-Dec-2019 Instruction Type:Provider Instructions for Treatment How to access health informa tion online Indication:Nonsmoker Start:25-Nov-2019 Instruction Type:Patient Education How to access health informa tion online - Detail Indication:Nonsmoker Start:25-Nov-2019 Instruction Type:Patient Education Patient Instructions Indication:BMI 26.0-26.9,adult Start:25-Nov-2019 Instruction Type:Provider Instructions for Treatment How to access health informa tion online Indication:Anxiety and depression Start:08-Nov-2019 Instruction Type:Patient Education How to access health informa tion online - Detail Indication:Anxiety and depression Start:08-Nov-2019 Instruction Type:Patient Education Patient Instructions Indication:Anxiety and depression Start:08-Nov-2019 Instruction Type:Provider Instructions for Treatment [facility]; [facility] Work Phone: Instructions* Name Dates Details Patient Instructions Indication:Nonsmoker Start:18-Jun-2021 Instruction Type:Provider Instructions for Treatment How to Access Health Informa tion Online using Patient Portal and [employer]rd [employer] Apps Indication:Nonsmoker Start:18-Jun-2021 Instruction Type:Patient Education Patient Instructions Indication:Nonsmoker Start:08-Mar-2021 Instruction Type:Provider Instructions for Treatment How to Access Health Informa tion Online using Patient Portal and [employer]rd [employer] Apps Indication:Nonsmoker Start:08-Mar-2021 Instruction Type:Patient Education Patient Instructions Indication:BMI 28.0-28.9,adult Start:23-Feb-2021 Instruction Type:Provider Instructions for Treatment How to Access Health Informa tion Online using Patient Portal and [employer]rd [employer] Apps Indication:BMI 28.0-28.9,adult Start:23-Feb-2021 Instruction Type:Patient Education Patient Instructions Indication:ADD (attention deficit disorder) Start:10-Dec-2020 Instruction Type:Provider Instructions for Treatment How to Access Health Informa tion Online using Patient Portal and [employer]rd [employer] Apps Indication:ADD (attention deficit disorder) Start:10-Dec-2020 Instruction Type:Patient Education Patient Instructions Indication:ADD (attention deficit disorder) Start:08-Jun-2020 Instruction Type:Provider Instructions for Treatment How to Access Health Informa tion Online using Patient Portal and [employer]rd [employer] Apps Indication:ADD (attention deficit disorder) Start:08-Jun-2020 Instruction Type:Patient Education How to access health informa tion online Indication:ADD (attention deficit disorder) Start:02-Dec-2019 Instruction Type:Patient Education How to access health informa tion online - Detail Indication:ADD (attention deficit disorder) Start:02-Dec-2019 Instruction Type:Patient Education Patient Instructions Indication:ADD (attention deficit disorder) Start:02-Dec-2019 Instruction Type:Provider Instructions for Treatment How to access health informa tion online Indication:Nonsmoker Start:25-Nov-2019 Instruction Type:Patient Education How to access health informa tion online - Detail Indication:Nonsmoker Start:25-Nov-2019 Instruction Type:Patient Education Patient Instructions Indication:BMI 26.0-26.9,adult Start:25-Nov-2019 Instruction Type:Provider Instructions for Treatment How to access health informa tion online Indication:Anxiety and depression Start:08-Nov-2019 Instruction Type:Patient Education How to access health informa tion online - Detail Indication:Anxiety and depression Start:08-Nov-2019 Instruction Type:Patient Education Patient Instructions Indication:Anxiety and depression Start:08-Nov-2019 Instruction Type:Provider Instructions for Treatment [facility]; [facility] Work Phone: Instructions* Name Dates Details Patient Instructions Indication:ADD (attention deficit disorder) Start:24-Dec-2021 Instruction Type:Provider Instructions for Treatment How to Access Health Informa tion Online using Patient Portal and [employer]rd [employer] Apps Indication:ADD (attention deficit disorder) Start:24-Dec-2021 Instruction Type:Patient Education Patient Instructions Indication:Nonsmoker Start:18-Jun-2021 Instruction Type:Provider Instructions for Treatment How to Access Health Informa tion Online using Patient Portal and [employer]rd [employer] Apps Indication:Nonsmoker Start:18-Jun-2021 Instruction Type:Patient Education Patient Instructions Indication:Nonsmoker Start:08-Mar-2021 Instruction Type:Provider Instructions for Treatment How to Access Health Informa tion Online using Patient Portal and [employer]rd [employer] Apps Indication:Nonsmoker Start:08-Mar-2021 Instruction Type:Patient Education Patient Instructions Indication:BMI 28.0-28.9,adult Start:23-Feb-2021 Instruction Type:Provider Instructions for Treatment How to Access Health Informa tion Online using Patient Portal and [employer]rd [employer] Apps Indication:BMI 28.0-28.9,adult Start:23-Feb-2021 Instruction Type:Patient Education Patient Instructions Indication:ADD (attention deficit disorder) Start:10-Dec-2020 Instruction Type:Provider Instructions for Treatment How to Access Health Informa tion Online using Patient Portal and [employer]rd [employer] Apps Indication:ADD (attention deficit disorder) Start:10-Dec-2020 Instruction Type:Patient Education Patient Instructions Indication:ADD (attention deficit disorder) Start:08-Jun-2020 Instruction Type:Provider Instructions for Treatment How to Access Health Informa tion Online using Patient Portal and [employer]rd [employer] Apps Indication:ADD (attention deficit disorder) Start:08-Jun-2020 Instruction Type:Patient Education How to access health informa tion online Indication:ADD (attention deficit disorder) Start:02-Dec-2019 Instruction Type:Patient Education How to access health informa tion online - Detail Indication:ADD (attention deficit disorder) Start:02-Dec-2019 Instruction Type:Patient Education Patient Instructions Indication:ADD (attention deficit disorder) Start:02-Dec-2019 Instruction Type:Provider Instructions for Treatment How to access health informa tion online Indication:Nonsmoker Start:25-Nov-2019 Instruction Type:Patient Education How to access health informa tion online - Detail Indication:Nonsmoker Start:25-Nov-2019 Instruction Type:Patient Education Patient Instructions Indication:BMI 26.0-26.9,adult Start:25-Nov-2019 Instruction Type:Provider Instructions for Treatment How to access health informa tion online Indication:Anxiety and depression Start:08-Nov-2019 Instruction Type:Patient Education How to access health informa tion online - Detail Indication:Anxiety and depression Start:08-Nov-2019 Instruction Type:Patient Education Patient Instructions Indication:Anxiety and depression Start:08-Nov-2019 Instruction Type:Provider Instructions for Treatment [facility]; [facility] Work Phone: Instructions* Name Dates Details Patient Instructions Indication:Nonsmoker Start:18-Jan-2022 Instruction Type:Provider Instructions for Treatment How to Access Health Informa tion Online using Patient Portal and [employer]rd [employer] Apps Indication:Nonsmoker Start:18-Jan-2022 Instruction Type:Patient Education Patient Instructions Indication:ADD (attention deficit disorder) Start:24-Dec-2021 Instruction Type:Provider Instructions for Treatment How to Access Health Informa tion Online using Patient Portal and [employer]rd [employer] Apps Indication:ADD (attention deficit disorder) Start:24-Dec-2021 Instruction Type:Patient Education Patient Instructions Indication:Nonsmoker Start:18-Jun-2021 Instruction Type:Provider Instructions for Treatment How to Access Health Informa tion Online using Patient Portal and [employer]rd [employer] Apps Indication:Nonsmoker Start:18-Jun-2021 Instruction Type:Patient Education Patient Instructions Indication:Nonsmoker Start:08-Mar-2021 Instruction Type:Provider Instructions for Treatment How to Access Health Informa tion Online using Patient Portal and [employer] Apps Indication:Nonsmoker Start:08-Mar-2021 Instruction Type:Patient Education Patient Instructions Indication:BMI 28.0-28.9,adult Start:23-Feb-2021 Instruction Type:Provider Instructions for Treatment How to Access Health Informa tion Online using Patient Portal and [employer] Apps Indication:BMI 28.0-28.9,adult Start:23-Feb-2021 Instruction Type:Patient Education Patient Instructions Indication:ADD (attention deficit disorder) Start:10-Dec-2020 Instruction Type:Provider Instructions for Treatment How to Access Health Informa tion Online using Patient Portal and [employer] Apps Indication:ADD (attention deficit disorder) Start:10-Dec-2020 Instruction Type:Patient Education Patient Instructions Indication:ADD (attention deficit disorder) Start:08-Jun-2020 Instruction Type:Provider Instructions for Treatment How to Access Health Informa tion Online using Patient Portal and [employer] Apps Indication:ADD (attention deficit disorder) Start:08-Jun-2020 Instruction Type:Patient Education How to access health informa tion online Indication:ADD (attention deficit disorder) Start:02-Dec-2019 Instruction Type:Patient Education How to access health informa tion online - Detail Indication:ADD (attention deficit disorder) Start:02-Dec-2019 Instruction Type:Patient Education Patient Instructions Indication:ADD (attention deficit disorder) Start:02-Dec-2019 Instruction Type:Provider Instructions for Treatment How to access health informa tion online Indication:Nonsmoker Start:25-Nov-2019 Instruction Type:Patient Education How to access health informa tion online - Detail Indication:Nonsmoker Start:25-Nov-2019 Instruction Type:Patient Education Patient Instructions Indication:BMI 26.0-26.9,adult Start:25-Nov-2019 Instruction Type:Provider Instructions for Treatment How to access health informa tion online Indication:Anxiety and depression Start:08-Nov-2019 Instruction Type:Patient Education How to access health informa tion online - Detail Indication:Anxiety and depression Start:08-Nov-2019 Instruction Type:Patient Education Patient Instructions Indication:Anxiety and depression Start:08-Nov-2019 Instruction Type:Provider Instructions for Treatment [facility]; [facility] Work Phone: Instructions* Name Dates Details Patient Instructions Indication:Nonsmoker Start:18-Jan-2022 Instruction Type:Provider Instructions for Treatment How to Access Health Informa tion Online using Patient Portal and [employer] Apps Indication:Nonsmoker Start:18-Jan-2022 Instruction Type:Patient Education Patient Instructions Indication:ADD (attention deficit disorder) Start:24-Dec-2021 Instruction Type:Provider Instructions for Treatment How to Access Health Informa tion Online using Patient Portal and [employer] Apps Indication:ADD (attention deficit disorder) Start:24-Dec-2021 Instruction Type:Patient Education Patient Instructions Indication:Nonsmoker Start:18-Jun-2021 Instruction Type:Provider Instructions for Treatment How to Access Health Informa tion Online using Patient Portal and [employer] Apps Indication:Nonsmoker Start:18-Jun-2021 Instruction Type:Patient Education Patient Instructions Indication:Nonsmoker Start:08-Mar-2021 Instruction Type:Provider Instructions for Treatment How to Access Health Informa tion Online using Patient Portal and [employer] Apps Indication:Nonsmoker Start:08-Mar-2021 Instruction Type:Patient Education Patient Instructions Indication:BMI 28.0-28.9,adult Start:23-Feb-2021 Instruction Type:Provider Instructions for Treatment How to Access Health Informa tion Online using Patient Portal and [employer] Apps Indication:BMI 28.0-28.9,adult Start:23-Feb-2021 Instruction Type:Patient Education Patient Instructions Indication:ADD (attention deficit disorder) Start:10-Dec-2020 Instruction Type:Provider Instructions for Treatment How to Access Health Informa tion Online using Patient Portal and [employer] Apps Indication:ADD (attention deficit disorder) Start:10-Dec-2020 Instruction Type:Patient Education Patient Instructions Indication:ADD (attention deficit disorder) Start:08-Jun-2020 Instruction Type:Provider Instructions for Treatment How to Access Health Informa tion Online using Patient Portal and [employer] Apps Indication:ADD (attention deficit disorder) Start:08-Jun-2020 Instruction Type:Patient Education How to access health informa tion online Indication:ADD (attention deficit disorder) Start:02-Dec-2019 Instruction Type:Patient Education How to access health informa tion online - Detail Indication:ADD (attention deficit disorder) Start:02-Dec-2019 Instruction Type:Patient Education Patient Instructions Indication:ADD (attention deficit disorder) Start:02-Dec-2019 Instruction Type:Provider Instructions for Treatment How to access health informa tion online Indication:Nonsmoker Start:25-Nov-2019 Instruction Type:Patient Education How to access health informa tion online - Detail Indication:Nonsmoker Start:25-Nov-2019 Instruction Type:Patient Education Patient Instructions Indication:BMI 26.0-26.9,adult Start:25-Nov-2019 Instruction Type:Provider Instructions for Treatment How to access health informa tion online Indication:Anxiety and depression Start:08-Nov-2019 Instruction Type:Patient Education How to access health informa tion online - Detail Indication:Anxiety and depression Start:08-Nov-2019 Instruction Type:Patient Education Patient Instructions Indication:Anxiety and depression Start:08-Nov-2019 Instruction Type:Provider Instructions for Treatment [facility]; [facility] Work Phone: Instructions* Name Dates Details Patient Instructions Indication:Nonsmoker Start:18-Jan-2022 Instruction Type:Provider Instructions for Treatment How to Access Health Informa tion Online using Patient Portal and [employer] Apps Indication:Nonsmoker Start:18-Jan-2022 Instruction Type:Patient Education Patient Instructions Indication:ADD (attention deficit disorder) Start:24-Dec-2021 Instruction Type:Provider Instructions for Treatment How to Access Health Informa tion Online using Patient Portal and [employer] Apps Indication:ADD (attention deficit disorder) Start:24-Dec-2021 Instruction Type:Patient Education Patient Instructions Indication:Nonsmoker Start:18-Jun-2021 Instruction Type:Provider Instructions for Treatment How to Access Health Informa tion Online using Patient Portal and [employer] Apps Indication:Nonsmoker Start:18-Jun-2021 Instruction Type:Patient Education Patient Instructions Indication:Nonsmoker Start:08-Mar-2021 Instruction Type:Provider Instructions for Treatment How to Access Health Informa tion Online using Patient Portal and [employer] Apps Indication:Nonsmoker Start:08-Mar-2021 Instruction Type:Patient Education Patient Instructions Indication:BMI 28.0-28.9,adult Start:23-Feb-2021 Instruction Type:Provider Instructions for Treatment How to Access Health Informa tion Online using Patient Portal and [employer] Apps Indication:BMI 28.0-28.9,adult Start:23-Feb-2021 Instruction Type:Patient Education Patient Instructions Indication:ADD (attention deficit disorder) Start:10-Dec-2020 Instruction Type:Provider Instructions for Treatment How to Access Health Informa tion Online using Patient Portal and [employer] Apps Indication:ADD (attention deficit disorder) Start:10-Dec-2020 Instruction Type:Patient Education Patient Instructions Indication:ADD (attention deficit disorder) Start:08-Jun-2020 Instruction Type:Provider Instructions for Treatment How to Access Health Informa tion Online using Patient Portal and [employer] Apps Indication:ADD (attention deficit disorder) Start:08-Jun-2020 Instruction Type:Patient Education How to access health informa tion online Indication:ADD (attention deficit disorder) Start:02-Dec-2019 Instruction Type:Patient Education How to access health informa tion online - Detail Indication:ADD (attention deficit disorder) Start:02-Dec-2019 Instruction Type:Patient Education Patient Instructions Indication:ADD (attention deficit disorder) Start:02-Dec-2019 Instruction Type:Provider Instructions for Treatment How to access health informa tion online Indication:Nonsmoker Start:25-Nov-2019 Instruction Type:Patient Education How to access health informa tion online - Detail Indication:Nonsmoker Start:25-Nov-2019 Instruction Type:Patient Education Patient Instructions Indication:BMI 26.0-26.9,adult Start:25-Nov-2019 Instruction Type:Provider Instructions for Treatment How to access health informa tion online Indication:Anxiety and depression Start:08-Nov-2019 Instruction Type:Patient Education How to access health informa tion online - Detail Indication:Anxiety and depression Start:08-Nov-2019 Instruction Type:Patient Education Patient Instructions Indication:Anxiety and depression Start:08-Nov-2019 Instruction Type:Provider Instructions for Treatment [facility]; [facility] Work Phone: Instructions* Name Dates Details Patient Instructions Indication:Nonsmoker Start:18-Jan-2022 Instruction Type:Provider Instructions for Treatment How to Access Health Informa tion Online using Patient Portal and [employer] Apps Indication:Nonsmoker Start:18-Jan-2022 Instruction Type:Patient Education Patient Instructions Indication:ADD (attention deficit disorder) Start:24-Dec-2021 Instruction Type:Provider Instructions for Treatment How to Access Health Informa tion Online using Patient Portal and [employer] Apps Indication:ADD (attention deficit disorder) Start:24-Dec-2021 Instruction Type:Patient Education Patient Instructions Indication:Nonsmoker Start:18-Jun-2021 Instruction Type:Provider Instructions for Treatment How to Access Health Informa tion Online using Patient Portal and [employer] Apps Indication:Nonsmoker Start:18-Jun-2021 Instruction Type:Patient Education Patient Instructions Indication:Nonsmoker Start:08-Mar-2021 Instruction Type:Provider Instructions for Treatment How to Access Health Informa tion Online using Patient Portal and [employer] Apps Indication:Nonsmoker Start:08-Mar-2021 Instruction Type:Patient Education Patient Instructions Indication:BMI 28.0-28.9,adult Start:23-Feb-2021 Instruction Type:Provider Instructions for Treatment How to Access Health Informa tion Online using Patient Portal and [employer] Apps Indication:BMI 28.0-28.9,adult Start:23-Feb-2021 Instruction Type:Patient Education Patient Instructions Indication:ADD (attention deficit disorder) Start:10-Dec-2020 Instruction Type:Provider Instructions for Treatment How to Access Health Informa tion Online using Patient Portal and [employer] Apps Indication:ADD (attention deficit disorder) Start:10-Dec-2020 Instruction Type:Patient Education Patient Instructions Indication:ADD (attention deficit disorder) Start:08-Jun-2020 Instruction Type:Provider Instructions for Treatment How to Access Health Informa tion Online using Patient Portal and [employer] Apps Indication:ADD (attention deficit disorder) Start:08-Jun-2020 Instruction Type:Patient Education How to access health informa tion online Indication:ADD (attention deficit disorder) Start:02-Dec-2019 Instruction Type:Patient Education How to access health informa tion online - Detail Indication:ADD (attention deficit disorder) Start:02-Dec-2019 Instruction Type:Patient Education Patient Instructions Indication:ADD (attention deficit disorder) Start:02-Dec-2019 Instruction Type:Provider Instructions for Treatment How to access health informa tion online Indication:Nonsmoker Start:25-Nov-2019 Instruction Type:Patient Education How to access health informa tion online - Detail Indication:Nonsmoker Start:25-Nov-2019 Instruction Type:Patient Education Patient Instructions Indication:BMI 26.0-26.9,adult Start:25-Nov-2019 Instruction Type:Provider Instructions for Treatment How to access health informa tion online Indication:Anxiety and depression Start:08-Nov-2019 Instruction Type:Patient Education How to access health informa tion online - Detail Indication:Anxiety and depression Start:08-Nov-2019 Instruction Type:Patient Education Patient Instructions Indication:Anxiety and depression Start:08-Nov-2019 Instruction Type:Provider Instructions for Treatment [facility]; [facility] Work Phone: Instructions* Name Dates Details Patient Instructions Indication:Nonsmoker Start:18-Jan-2022 Instruction Type:Provider Instructions for Treatment How to Access Health Informa tion Online using Patient Portal and [employer] Apps Indication:Nonsmoker Start:18-Jan-2022 Instruction Type:Patient Education Patient Instructions Indication:ADD (attention deficit disorder) Start:24-Dec-2021 Instruction Type:Provider Instructions for Treatment How to Access Health Informa tion Online using Patient Portal and [employer] Apps Indication:ADD (attention deficit disorder) Start:24-Dec-2021 Instruction Type:Patient Education Patient Instructions Indication:Nonsmoker Start:18-Jun-2021 Instruction Type:Provider Instructions for Treatment How to Access Health Informa tion Online using Patient Portal and [employer] Apps Indication:Nonsmoker Start:18-Jun-2021 Instruction Type:Patient Education Patient Instructions Indication:Nonsmoker Start:08-Mar-2021 Instruction Type:Provider Instructions for Treatment How to Access Health Informa tion Online using Patient Portal and [employer] Apps Indication:Nonsmoker Start:08-Mar-2021 Instruction Type:Patient Education Patient Instructions Indication:BMI 28.0-28.9,adult Start:23-Feb-2021 Instruction Type:Provider Instructions for Treatment How to Access Health Informa tion Online using Patient Portal and [employer] Apps Indication:BMI 28.0-28.9,adult Start:23-Feb-2021 Instruction Type:Patient Education Patient Instructions Indication:ADD (attention deficit disorder) Start:10-Dec-2020 Instruction Type:Provider Instructions for Treatment How to Access Health Informa tion Online using Patient Portal and [employer] Apps Indication:ADD (attention deficit disorder) Start:10-Dec-2020 Instruction Type:Patient Education Patient Instructions Indication:ADD (attention deficit disorder) Start:08-Jun-2020 Instruction Type:Provider Instructions for Treatment How to Access Health Informa tion Online using Patient Portal and [employer] Apps Indication:ADD (attention deficit disorder) Start:08-Jun-2020 Instruction Type:Patient Education How to access health informa tion online Indication:ADD (attention deficit disorder) Start:02-Dec-2019 Instruction Type:Patient Education How to access health informa tion online - Detail Indication:ADD (attention deficit disorder) Start:02-Dec-2019 Instruction Type:Patient Education Patient Instructions Indication:ADD (attention deficit disorder) Start:02-Dec-2019 Instruction Type:Provider Instructions for Treatment How to access health informa tion online Indication:Nonsmoker Start:25-Nov-2019 Instruction Type:Patient Education How to access health informa tion online - Detail Indication:Nonsmoker Start:25-Nov-2019 Instruction Type:Patient Education Patient Instructions Indication:BMI 26.0-26.9,adult Start:25-Nov-2019 Instruction Type:Provider Instructions for Treatment How to access health informa tion online Indication:Anxiety and depression Start:08-Nov-2019 Instruction Type:Patient Education How to access health informa tion online - Detail Indication:Anxiety and depression Start:08-Nov-2019 Instruction Type:Patient Education Patient Instructions Indication:Anxiety and depression Start:08-Nov-2019 Instruction Type:Provider Instructions for Treatment [facility]; [facility] Work Phone: Instructions* Name Dates Details Patient Instructions Indication:Nonsmoker Start:18-Jan-2022 Instruction Type:Provider Instructions for Treatment How to Access Health Informa tion Online using Patient Portal and [employer] Apps Indication:Nonsmoker Start:18-Jan-2022 Instruction Type:Patient Education Patient Instructions Indication:ADD (attention deficit disorder) Start:24-Dec-2021 Instruction Type:Provider Instructions for Treatment How to Access Health Informa tion Online using Patient Portal and [employer] Apps Indication:ADD (attention deficit disorder) Start:24-Dec-2021 Instruction Type:Patient Education Patient Instructions Indication:Nonsmoker Start:18-Jun-2021 Instruction Type:Provider Instructions for Treatment How to Access Health Informa tion Online using Patient Portal and [employer] Apps Indication:Nonsmoker Start:18-Jun-2021 Instruction Type:Patient Education Patient Instructions Indication:Nonsmoker Start:08-Mar-2021 Instruction Type:Provider Instructions for Treatment How to Access Health Informa tion Online using Patient Portal and [employer] Apps Indication:Nonsmoker Start:08-Mar-2021 Instruction Type:Patient Education Patient Instructions Indication:BMI 28.0-28.9,adult Start:23-Feb-2021 Instruction Type:Provider Instructions for Treatment How to Access Health Informa tion Online using Patient Portal and [employer] Apps Indication:BMI 28.0-28.9,adult Start:23-Feb-2021 Instruction Type:Patient Education Patient Instructions Indication:ADD (attention deficit disorder) Start:10-Dec-2020 Instruction Type:Provider Instructions for Treatment How to Access Health Informa tion Online using Patient Portal and [employer] Apps Indication:ADD (attention deficit disorder) Start:10-Dec-2020 Instruction Type:Patient Education Patient Instructions Indication:ADD (attention deficit disorder) Start:08-Jun-2020 Instruction Type:Provider Instructions for Treatment How to Access Health Informa tion Online using Patient Portal and [employer] Apps Indication:ADD (attention deficit disorder) Start:08-Jun-2020 Instruction Type:Patient Education How to access health informa tion online Indication:ADD (attention deficit disorder) Start:02-Dec-2019 Instruction Type:Patient Education How to access health informa tion online - Detail Indication:ADD (attention deficit disorder) Start:02-Dec-2019 Instruction Type:Patient Education Patient Instructions Indication:ADD (attention deficit disorder) Start:02-Dec-2019 Instruction Type:Provider Instructions for Treatment How to access health informa tion online Indication:Nonsmoker Start:25-Nov-2019 Instruction Type:Patient Education How to access health informa tion online - Detail Indication:Nonsmoker Start:25-Nov-2019 Instruction Type:Patient Education Patient Instructions Indication:BMI 26.0-26.9,adult Start:25-Nov-2019 Instruction Type:Provider Instructions for Treatment How to access health informa tion online Indication:Anxiety and depression Start:08-Nov-2019 Instruction Type:Patient Education How to access health informa tion online - Detail Indication:Anxiety and depression Start:08-Nov-2019 Instruction Type:Patient Education Patient Instructions Indication:Anxiety and depression Start:08-Nov-2019 Instruction Type:Provider Instructions for Treatment [facility]; [facility] Work Phone: Instructions* Name Dates Details Patient Instructions Indication:UTI symptoms Start:13-Jul-2022 Instruction Type:Provider Instructions for Treatment How to Access Health Informa tion Online using Patient Portal and [employer] Apps Indication:UTI symptoms Start:13-Jul-2022 Instruction Type:Patient Education Patient Instructions Indication:Nonsmoker Start:18-Jan-2022 Instruction Type:Provider Instructions for Treatment How to Access Health Informa tion Online using Patient Portal and [employer] Apps Indication:Nonsmoker Start:18-Jan-2022 Instruction Type:Patient Education Patient Instructions Indication:ADD (attention deficit disorder) Start:24-Dec-2021 Instruction Type:Provider Instructions for Treatment How to Access Health Informa tion Online using Patient Portal and [employer] Apps Indication:ADD (attention deficit disorder) Start:24-Dec-2021 Instruction Type:Patient Education Patient Instructions Indication:Nonsmoker Start:18-Jun-2021 Instruction Type:Provider Instructions for Treatment How to Access Health Informa tion Online using Patient Portal and [employer] Apps Indication:Nonsmoker Start:18-Jun-2021 Instruction Type:Patient Education Patient Instructions Indication:Nonsmoker Start:08-Mar-2021 Instruction Type:Provider Instructions for Treatment How to Access Health Informa tion Online using Patient Portal and [employer] Apps Indication:Nonsmoker Start:08-Mar-2021 Instruction Type:Patient Education Patient Instructions Indication:BMI 28.0-28.9,adult Start:23-Feb-2021 Instruction Type:Provider Instructions for Treatment How to Access Health Informa tion Online using Patient Portal and [employer] Apps Indication:BMI 28.0-28.9,adult Start:23-Feb-2021 Instruction Type:Patient Education Patient Instructions Indication:ADD (attention deficit disorder) Start:10-Dec-2020 Instruction Type:Provider Instructions for Treatment How to Access Health Informa tion Online using Patient Portal and [employer] Apps Indication:ADD (attention deficit disorder) Start:10-Dec-2020 Instruction Type:Patient Education Patient Instructions Indication:ADD (attention deficit disorder) Start:08-Jun-2020 Instruction Type:Provider Instructions for Treatment How to Access Health Informa tion Online using Patient Portal and [employer] Apps Indication:ADD (attention deficit disorder) Start:08-Jun-2020 Instruction Type:Patient Education How to access health informa tion online Indication:ADD (attention deficit disorder) Start:02-Dec-2019 Instruction Type:Patient Education How to access health informa tion online - Detail Indication:ADD (attention deficit disorder) Start:02-Dec-2019 Instruction Type:Patient Education Patient Instructions Indication:ADD (attention deficit disorder) Start:02-Dec-2019 Instruction Type:Provider Instructions for Treatment How to access health informa tion online Indication:Nonsmoker Start:25-Nov-2019 Instruction Type:Patient Education How to access health informa tion online - Detail Indication:Nonsmoker Start:25-Nov-2019 Instruction Type:Patient Education Patient Instructions Indication:BMI 26.0-26.9,adult Start:25-Nov-2019 Instruction Type:Provider Instructions for Treatment How to access health informa tion online Indication:Anxiety and depression Start:08-Nov-2019 Instruction Type:Patient Education How to access health informa tion online - Detail Indication:Anxiety and depression Start:08-Nov-2019 Instruction Type:Patient Education Patient Instructions Indication:Anxiety and depression Start:08-Nov-2019 Instruction Type:Provider Instructions for Treatment [facility]; [facility] Work Phone: Instructions* Name Dates Details Patient Instructions Indication:UTI symptoms Start:13-Jul-2022 Instruction Type:Provider Instructions for Treatment How to Access Health Informa tion Online using Patient Portal and [employer] Apps Indication:UTI symptoms Start:13-Jul-2022 Instruction Type:Patient Education Patient Instructions Indication:Nonsmoker Start:18-Jan-2022 Instruction Type:Provider Instructions for Treatment How to Access Health Informa tion Online using Patient Portal and [email or web address] Apps Indication:Nonsmoker Start:18-Jan-2022 Instruction Type:Patient Education Patient Instructions Indication:ADD (attention deficit disorder) Start:24-Dec-2021 Instruction Type:Provider Instructions for Treatment How to Access Health Informa tion Online using Patient Portal and [employer] Apps Indication:ADD (attention deficit disorder) Start:24-Dec-2021 Instruction Type:Patient Education Patient Instructions Indication:Nonsmoker Start:18-Jun-2021 Instruction Type:Provider Instructions for Treatment How to Access Health Informa tion Online using Patient Portal and [employer] Apps Indication:Nonsmoker Start:18-Jun-2021 Instruction Type:Patient Education Patient Instructions Indication:Nonsmoker Start:08-Mar-2021 Instruction Type:Provider Instructions for Treatment How to Access Health Informa tion Online using Patient Portal and [employer]rd [employer] Apps Indication:Nonsmoker Start:08-Mar-2021 Instruction Type:Patient Education Patient Instructions Indication:BMI 28.0-28.9,adult Start:23-Feb-2021 Instruction Type:Provider Instructions for Treatment How to Access Health Informa tion Online using Patient Portal and [employer]rd [employer] Apps Indication:BMI 28.0-28.9,adult Start:23-Feb-2021 Instruction Type:Patient Education Patient Instructions Indication:ADD (attention deficit disorder) Start:10-Dec-2020 Instruction Type:Provider Instructions for Treatment How to Access Health Informa tion Online using Patient Portal and [employer]rd [employer] Apps Indication:ADD (attention deficit disorder) Start:10-Dec-2020 Instruction Type:Patient Education Patient Instructions Indication:ADD (attention deficit disorder) Start:08-Jun-2020 Instruction Type:Provider Instructions for Treatment How to Access Health Informa tion Online using Patient Portal and [employer] Apps Indication:ADD (attention deficit disorder) Start:08-Jun-2020 Instruction Type:Patient Education How to access health informa tion online Indication:ADD (attention deficit disorder) Start:02-Dec-2019 Instruction Type:Patient Education How to access health informa tion online - Detail Indication:ADD (attention deficit disorder) Start:02-Dec-2019 Instruction Type:Patient Education Patient Instructions Indication:ADD (attention deficit disorder) Start:02-Dec-2019 Instruction Type:Provider Instructions for Treatment How to access health informa tion online Indication:Nonsmoker Start:25-Nov-2019 Instruction Type:Patient Education How to access health informa tion online - Detail Indication:Nonsmoker Start:25-Nov-2019 Instruction Type:Patient Education Patient Instructions Indication:BMI 26.0-26.9,adult Start:25-Nov-2019 Instruction Type:Provider Instructions for Treatment How to access health informa tion online Indication:Anxiety and depression Start:08-Nov-2019 Instruction Type:Patient Education How to access health informa tion online - Detail Indication:Anxiety and depression Start:08-Nov-2019 Instruction Type:Patient Education Patient Instructions Indication:Anxiety and depression Start:08-Nov-2019 Instruction Type:Provider Instructions for Treatment [facility] Work Phone: Instructions* Name Dates Details Patient Instructions Indication:UTI symptoms Start:13-Jul-2022 Instruction Type:Provider Instructions for Treatment How to Access Health Informa tion Online using Patient Portal and [employer]rd [employer] Apps Indication:UTI symptoms Start:13-Jul-2022 Instruction Type:Patient Education Patient Instructions Indication:Nonsmoker Start:18-Jan-2022 Instruction Type:Provider Instructions for Treatment How to Access Health Informa tion Online using Patient Portal and [employer]rd [employer] Apps Indication:Nonsmoker Start:18-Jan-2022 Instruction Type:Patient Education Patient Instructions Indication:ADD (attention deficit disorder) Start:24-Dec-2021 Instruction Type:Provider Instructions for Treatment How to Access Health Informa tion Online using Patient Portal and [employer]rd [employer] Apps Indication:ADD (attention deficit disorder) Start:24-Dec-2021 Instruction Type:Patient Education Patient Instructions Indication:Nonsmoker Start:18-Jun-2021 Instruction Type:Provider Instructions for Treatment How to Access Health Informa tion Online using Patient Portal and [employer]rd [employer] Apps Indication:Nonsmoker Start:18-Jun-2021 Instruction Type:Patient Education Patient Instructions Indication:Nonsmoker Start:08-Mar-2021 Instruction Type:Provider Instructions for Treatment How to Access Health Informa tion Online using Patient Portal and [employer]rd [employer] Apps Indication:Nonsmoker Start:08-Mar-2021 Instruction Type:Patient Education Patient Instructions Indication:BMI 28.0-28.9,adult Start:23-Feb-2021 Instruction Type:Provider Instructions for Treatment How to Access Health Informa tion Online using Patient Portal and 3rd [employer] Apps Indication:BMI 28.0-28.9,adult Start:23-Feb-2021 Instruction Type:Patient Education Patient Instructions Indication:ADD (attention deficit disorder) Start:10-Dec-2020 Instruction Type:Provider Instructions for Treatment How to Access Health Informa tion Online using Patient Portal and [employer]rd [employer] Apps Indication:ADD (attention deficit disorder) Start:10-Dec-2020 Instruction Type:Patient Education Patient Instructions Indication:ADD (attention deficit disorder) Start:08-Jun-2020 Instruction Type:Provider Instructions for Treatment How to Access Health Informa tion Online using Patient Portal and [employer]rd [employer] Apps Indication:ADD (attention deficit disorder) Start:08-Jun-2020 Instruction Type:Patient Education How to access health informa tion online Indication:ADD (attention deficit disorder) Start:02-Dec-2019 Instruction Type:Patient Education How to access health informa tion online - Detail Indication:ADD (attention deficit disorder) Start:02-Dec-2019 Instruction Type:Patient Education Patient Instructions Indication:ADD (attention deficit disorder) Start:02-Dec-2019 Instruction Type:Provider Instructions for Treatment How to access health informa tion online Indication:Nonsmoker Start:25-Nov-2019 Instruction Type:Patient Education How to access health informa tion online - Detail Indication:Nonsmoker Start:25-Nov-2019 Instruction Type:Patient Education Patient Instructions Indication:BMI 26.0-26.9,adult Start:25-Nov-2019 Instruction Type:Provider Instructions for Treatment How to access health informa tion online Indication:Anxiety and depression Start:08-Nov-2019 Instruction Type:Patient Education How to access health informa tion online - Detail Indication:Anxiety and depression Start:08-Nov-2019 Instruction Type:Patient Education Patient Instructions Indication:Anxiety and depression Start:08-Nov-2019 Instruction Type:Provider Instructions for Treatment [facility]; [facility] Work Phone: Instructions* Name Dates Details Patient Instructions Indication:UTI symptoms Start:13-Jul-2022 Instruction Type:Provider Instructions for Treatment How to Access Health Informa tion Online using Patient Portal and [employer]rd [employer] Apps Indication:UTI symptoms Start:13-Jul-2022 Instruction Type:Patient Education Patient Instructions Indication:Nonsmoker Start:18-Jan-2022 Instruction Type:Provider Instructions for Treatment How to Access Health Informa tion Online using Patient Portal and [employer]rd [employer] Apps Indication:Nonsmoker Start:18-Jan-2022 Instruction Type:Patient Education Patient Instructions Indication:ADD (attention deficit disorder) Start:24-Dec-2021 Instruction Type:Provider Instructions for Treatment How to Access Health Informa tion Online using Patient Portal and [employer]rd [employer] Apps Indication:ADD (attention deficit disorder) Start:24-Dec-2021 Instruction Type:Patient Education Patient Instructions Indication:Nonsmoker Start:18-Jun-2021 Instruction Type:Provider Instructions for Treatment How to Access Health Informa tion Online using Patient Portal and [employer]rd [employer] Apps Indication:Nonsmoker Start:18-Jun-2021 Instruction Type:Patient Education Patient Instructions Indication:Nonsmoker Start:08-Mar-2021 Instruction Type:Provider Instructions for Treatment How to Access Health Informa tion Online using Patient Portal and [employer]rd [employer] Apps Indication:Nonsmoker Start:08-Mar-2021 Instruction Type:Patient Education Patient Instructions Indication:BMI 28.0-28.9,adult Start:23-Feb-2021 Instruction Type:Provider Instructions for Treatment How to Access Health Informa tion Online using Patient Portal and [employer]rd [employer] Apps Indication:BMI 28.0-28.9,adult Start:23-Feb-2021 Instruction Type:Patient Education Patient Instructions Indication:ADD (attention deficit disorder) Start:10-Dec-2020 Instruction Type:Provider Instructions for Treatment How to Access Health Informa tion Online using Patient Portal and [employer]rd [employer] Apps Indication:ADD (attention deficit disorder) Start:10-Dec-2020 Instruction Type:Patient Education Patient Instructions Indication:ADD (attention deficit disorder) Start:08-Jun-2020 Instruction Type:Provider Instructions for Treatment How to Access Health Informa tion Online using Patient Portal and [employer]rd [employer] Apps Indication:ADD (attention deficit disorder) Start:08-Jun-2020 Instruction Type:Patient Education How to access health informa tion online Indication:ADD (attention deficit disorder) Start:02-Dec-2019 Instruction Type:Patient Education How to access health informa tion online - Detail Indication:ADD (attention deficit disorder) Start:02-Dec-2019 Instruction Type:Patient Education Patient Instructions Indication:ADD (attention deficit disorder) Start:02-Dec-2019 Instruction Type:Provider Instructions for Treatment How to access health informa tion online Indication:Nonsmoker Start:25-Nov-2019 Instruction Type:Patient Education How to access health informa tion online - Detail Indication:Nonsmoker Start:25-Nov-2019 Instruction Type:Patient Education Patient Instructions Indication:BMI 26.0-26.9,adult Start:25-Nov-2019 Instruction Type:Provider Instructions for Treatment How to access health informa tion online Indication:Anxiety and depression Start:08-Nov-2019 Instruction Type:Patient Education How to access health informa tion online - Detail Indication:Anxiety and depression Start:08-Nov-2019 Instruction Type:Patient Education Patient Instructions Indication:Anxiety and depression Start:08-Nov-2019 Instruction Type:Provider Instructions for Treatment [facility]; [facility] Work Phone: Instructions* Name Dates Details Patient Instructions Indication:UTI symptoms Start:13-Jul-2022 Instruction Type:Provider Instructions for Treatment How to Access Health Informa tion Online using Patient Portal and [employer]rd [employer] Apps Indication:UTI symptoms Start:13-Jul-2022 Instruction Type:Patient Education Patient Instructions Indication:Nonsmoker Start:18-Jan-2022 Instruction Type:Provider Instructions for Treatment How to Access Health Informa tion Online using Patient Portal and [employer]rd [employer] Apps Indication:Nonsmoker Start:18-Jan-2022 Instruction Type:Patient Education Patient Instructions Indication:ADD (attention deficit disorder) Start:24-Dec-2021 Instruction Type:Provider Instructions for Treatment How to Access Health Informa tion Online using Patient Portal and [employer]rd [employer] Apps Indication:ADD (attention deficit disorder) Start:24-Dec-2021 Instruction Type:Patient Education Patient Instructions Indication:Nonsmoker Start:18-Jun-2021 Instruction Type:Provider Instructions for Treatment How to Access Health Informa tion Online using Patient Portal and [employer]rd [employer] Apps Indication:Nonsmoker Start:18-Jun-2021 Instruction Type:Patient Education Patient Instructions Indication:Nonsmoker Start:08-Mar-2021 Instruction Type:Provider Instructions for Treatment How to Access Health Informa tion Online using Patient Portal and [email or web address] Apps Indication:Nonsmoker Start:08-Mar-2021 Instruction Type:Patient Education Patient Instructions Indication:BMI 28.0-28.9,adult Start:23-Feb-2021 Instruction Type:Provider Instructions for Treatment How to Access Health Informa tion Online using Patient Portal and [employer] Apps Indication:BMI 28.0-28.9,adult Start:23-Feb-2021 Instruction Type:Patient Education Patient Instructions Indication:ADD (attention deficit disorder) Start:10-Dec-2020 Instruction Type:Provider Instructions for Treatment How to Access Health Informa tion Online using Patient Portal and [email or web address] Apps Indication:ADD (attention deficit disorder) Start:10-Dec-2020 Instruction Type:Patient Education Patient Instructions Indication:ADD (attention deficit disorder) Start:08-Jun-2020 Instruction Type:Provider Instructions for Treatment How to Access Health Informa tion Online using Patient Portal and [email or web address] Apps Indication:ADD (attention deficit disorder) Start:08-Jun-2020 Instruction Type:Patient Education How to access health informa tion online Indication:ADD (attention deficit disorder) Start:02-Dec-2019 Instruction Type:Patient Education How to access health informa tion online - Detail Indication:ADD (attention deficit disorder) Start:02-Dec-2019 Instruction Type:Patient Education Patient Instructions Indication:ADD (attention deficit disorder) Start:02-Dec-2019 Instruction Type:Provider Instructions for Treatment How to access health informa tion online Indication:Nonsmoker Start:25-Nov-2019 Instruction Type:Patient Education How to access health informa tion online - Detail Indication:Nonsmoker Start:25-Nov-2019 Instruction Type:Patient Education Patient Instructions Indication:BMI 26.0-26.9,adult Start:25-Nov-2019 Instruction Type:Provider Instructions for Treatment How to access health informa tion online Indication:Anxiety and depression Start:08-Nov-2019 Instruction Type:Patient Education How to access health informa tion online - Detail Indication:Anxiety and depression Start:08-Nov-2019 Instruction Type:Patient Education Patient Instructions Indication:Anxiety and depression Start:08-Nov-2019 Instruction Type:Provider Instructions for Treatment [facility]; [facility] Work Phone: Instructions* Name Dates Details Patient Instructions Indication:UTI symptoms Start:13-Jul-2022 Instruction Type:Provider Instructions for Treatment How to Access Health Informa tion Online using Patient Portal and [employer]rd [employer] Apps Indication:UTI symptoms Start:13-Jul-2022 Instruction Type:Patient Education Patient Instructions Indication:Nonsmoker Start:18-Jan-2022 Instruction Type:Provider Instructions for Treatment How to Access Health Informa tion Online using Patient Portal and [employer]rd [employer] Apps Indication:Nonsmoker Start:18-Jan-2022 Instruction Type:Patient Education Patient Instructions Indication:ADD (attention deficit disorder) Start:24-Dec-2021 Instruction Type:Provider Instructions for Treatment How to Access Health Informa tion Online using Patient Portal and [employer]rd [employer] Apps Indication:ADD (attention deficit disorder) Start:24-Dec-2021 Instruction Type:Patient Education Patient Instructions Indication:Nonsmoker Start:18-Jun-2021 Instruction Type:Provider Instructions for Treatment How to Access Health Informa tion Online using Patient Portal and [employer]rd [employer] Apps Indication:Nonsmoker Start:18-Jun-2021 Instruction Type:Patient Education Patient Instructions Indication:Nonsmoker Start:08-Mar-2021 Instruction Type:Provider Instructions for Treatment How to Access Health Informa tion Online using Patient Portal and [employer]rd [employer] Apps Indication:Nonsmoker Start:08-Mar-2021 Instruction Type:Patient Education Patient Instructions Indication:BMI 28.0-28.9,adult Start:23-Feb-2021 Instruction Type:Provider Instructions for Treatment How to Access Health Informa tion Online using Patient Portal and [employer] Apps Indication:BMI 28.0-28.9,adult Start:23-Feb-2021 Instruction Type:Patient Education Patient Instructions Indication:ADD (attention deficit disorder) Start:10-Dec-2020 Instruction Type:Provider Instructions for Treatment How to Access Health Informa tion Online using Patient Portal and [employer] Apps Indication:ADD (attention deficit disorder) Start:10-Dec-2020 Instruction Type:Patient Education Patient Instructions Indication:ADD (attention deficit disorder) Start:08-Jun-2020 Instruction Type:Provider Instructions for Treatment How to Access Health Informa tion Online using Patient Portal and [employer] Apps Indication:ADD (attention deficit disorder) Start:08-Jun-2020 Instruction Type:Patient Education How to access health informa tion online Indication:ADD (attention deficit disorder) Start:02-Dec-2019 Instruction Type:Patient Education How to access health informa tion online - Detail Indication:ADD (attention deficit disorder) Start:02-Dec-2019 Instruction Type:Patient Education Patient Instructions Indication:ADD (attention deficit disorder) Start:02-Dec-2019 Instruction Type:Provider Instructions for Treatment How to access health informa tion online Indication:Nonsmoker Start:25-Nov-2019 Instruction Type:Patient Education How to access health informa tion online - Detail Indication:Nonsmoker Start:25-Nov-2019 Instruction Type:Patient Education Patient Instructions Indication:BMI 26.0-26.9,adult Start:25-Nov-2019 Instruction Type:Provider Instructions for Treatment How to access health informa tion online Indication:Anxiety and depression Start:08-Nov-2019 Instruction Type:Patient Education How to access health informa tion online - Detail Indication:Anxiety and depression Start:08-Nov-2019 Instruction Type:Patient Education Patient Instructions Indication:Anxiety and depression Start:08-Nov-2019 Instruction Type:Provider Instructions for Treatment [facility]; [facility] Work Phone: Instructions* Name Dates Details Patient Instructions Indication:UTI symptoms Start:13-Jul-2022 Instruction Type:Provider Instructions for Treatment How to Access Health Informa tion Online using Patient Portal and [employer] Apps Indication:UTI symptoms Start:13-Jul-2022 Instruction Type:Patient Education Patient Instructions Indication:Nonsmoker Start:18-Jan-2022 Instruction Type:Provider Instructions for Treatment How to Access Health Informa tion Online using Patient Portal and [employer] Apps Indication:Nonsmoker Start:18-Jan-2022 Instruction Type:Patient Education Patient Instructions Indication:ADD (attention deficit disorder) Start:24-Dec-2021 Instruction Type:Provider Instructions for Treatment How to Access Health Informa tion Online using Patient Portal and [employer]rd [employer] Apps Indication:ADD (attention deficit disorder) Start:24-Dec-2021 Instruction Type:Patient Education Patient Instructions Indication:Nonsmoker Start:18-Jun-2021 Instruction Type:Provider Instructions for Treatment How to Access Health Informa tion Online using Patient Portal and [employer]rd [employer] Apps Indication:Nonsmoker Start:18-Jun-2021 Instruction Type:Patient Education Patient Instructions Indication:Nonsmoker Start:08-Mar-2021 Instruction Type:Provider Instructions for Treatment How to Access Health Informa tion Online using Patient Portal and [employer]rd [employer] Apps Indication:Nonsmoker Start:08-Mar-2021 Instruction Type:Patient Education Patient Instructions Indication:BMI 28.0-28.9,adult Start:23-Feb-2021 Instruction Type:Provider Instructions for Treatment How to Access Health Informa tion Online using Patient Portal and [employer]rd [employer] Apps Indication:BMI 28.0-28.9,adult Start:23-Feb-2021 Instruction Type:Patient Education Patient Instructions Indication:ADD (attention deficit disorder) Start:10-Dec-2020 Instruction Type:Provider Instructions for Treatment How to Access Health Informa tion Online using Patient Portal and [employer] Apps Indication:ADD (attention deficit disorder) Start:10-Dec-2020 Instruction Type:Patient Education Patient Instructions Indication:ADD (attention deficit disorder) Start:08-Jun-2020 Instruction Type:Provider Instructions for Treatment How to Access Health Informa tion Online using Patient Portal and [employer] Apps Indication:ADD (attention deficit disorder) Start:08-Jun-2020 Instruction Type:Patient Education How to access health informa tion online Indication:ADD (attention deficit disorder) Start:02-Dec-2019 Instruction Type:Patient Education How to access health informa tion online - Detail Indication:ADD (attention deficit disorder) Start:02-Dec-2019 Instruction Type:Patient Education Patient Instructions Indication:ADD (attention deficit disorder) Start:02-Dec-2019 Instruction Type:Provider Instructions for Treatment How to access health informa tion online Indication:Nonsmoker Start:25-Nov-2019 Instruction Type:Patient Education How to access health informa tion online - Detail Indication:Nonsmoker Start:25-Nov-2019 Instruction Type:Patient Education Patient Instructions Indication:BMI 26.0-26.9,adult Start:25-Nov-2019 Instruction Type:Provider Instructions for Treatment How to access health informa tion online Indication:Anxiety and depression Start:08-Nov-2019 Instruction Type:Patient Education How to access health informa tion online - Detail Indication:Anxiety and depression Start:08-Nov-2019 Instruction Type:Patient Education Patient Instructions Indication:Anxiety and depression Start:08-Nov-2019 Instruction Type:Provider Instructions for Treatment [facility]; [facility] Work Phone: reason for referral (narrative)* Diagnostic Procedure Only (Routine) - Pending Review Specialty Diagnoses / Procedures Referred By Alex lowery Referred To Contact [facility] Diagnoses Adnexal fullness Pelvic pain in female Procedures PELVIC US WHI US PELVIC NONOBSTETRIC REAL-TIME IMAGE COMPLETE Jennifer Davalos MD [address] [place] [address] [facility] [address] [place] [address] Referral ID Status Reason Start Date Expiration Date Visits Requested Visits Authorized [id number] Pending Review Auto-Generat ed Referral 02/09/2022 02/09/2023 1 1 [facility] Family History Unknown Family Member Name Dates Details Cancer Comments:mother- thyroid Status:Active Diabetes Comments:father and grandpar ent Status:Active Emotional/Anxiety/Depression /Suicide Comments:father Status:Active Heart/Lung Disease Comments:Father and grandpar ent Status:Active High Cholesterol Comments:father mother and g randparent Status:Active HTN Comments:father and grandpar ent Status:Active Thyroid Comments:Mother. Status:Active Unknown Family Member Name Dates Details Cancer Comments:mother- thyroid Status:Active Diabetes Comments:father and grandpar ent Status:Active Emotional/Anxiety/Depression /Suicide Comments:father Status:Active Heart/Lung Disease Comments:Father and grandpar ent Status:Active High Cholesterol Comments:father mother and g randparent Status:Active HTN Comments:father and grandpar ent Status:Active Thyroid Comments:Mother. Status:Active Unknown Family Member Name Dates Details Cancer Comments:mother- thyroid Status:Active Diabetes Comments:father and grandpar ent Status:Active Emotional/Anxiety/Depression /Suicide Comments:father Status:Active Heart/Lung Disease Comments:Father and grandpar ent Status:Active High Cholesterol Comments:father mother and g randparent Status:Active HTN Comments:father and grandpar ent Status:Active Thyroid Comments:Mother. Status:Active Unknown Family Member Name Dates Details Cancer Comments:mother- thyroid Status:Active Diabetes Comments:father and grandpar ent Status:Active Emotional/Anxiety/Depression /Suicide Comments:father Status:Active Heart/Lung Disease Comments:Father and grandpar ent Status:Active High Cholesterol Comments:father mother and g randparent Status:Active HTN Comments:father and grandpar ent Status:Active Thyroid Comments:Mother. Status:Active Unknown Family Member Name Dates Details Cancer Comments:mother- thyroid Status:Active Diabetes Comments:father and grandpar ent Status:Active Emotional/Anxiety/Depression /Suicide Comments:father Status:Active Heart/Lung Disease Comments:Father and grandpar ent Status:Active High Cholesterol Comments:father mother and g randparent Status:Active HTN Comments:father and grandpar ent Status:Active Thyroid Comments:Mother. Status:Active Unknown Family Member Name Dates Details Cancer Comments:mother- thyroid Status:Active Diabetes Comments:father and grandpar ent Status:Active Emotional/Anxiety/Depression /Suicide Comments:father Status:Active Heart/Lung Disease Comments:Father and grandpar ent Status:Active High Cholesterol Comments:father mother and g randparent Status:Active HTN Comments:father and grandpar ent Status:Active Thyroid Comments:Mother. Status:Active Unknown Family Member Name Dates Details Cancer Comments:mother- thyroid Status:Active Diabetes Comments:father and grandpar ent Status:Active Emotional/Anxiety/Depression /Suicide Comments:father Status:Active Heart/Lung Disease Comments:Father and grandpar ent Status:Active High Cholesterol Comments:father mother and g randparent Status:Active HTN Comments:father and grandpar ent Status:Active Thyroid Comments:Mother. Status:Active Unknown Family Member Name Dates Details Cancer Comments:mother- thyroid Status:Active Diabetes Comments:father and grandpar ent Status:Active Emotional/Anxiety/Depression /Suicide Comments:father Status:Active Heart/Lung Disease Comments:Father and grandpar ent Status:Active High Cholesterol Comments:father mother and g randparent Status:Active HTN Comments:father and grandpar ent Status:Active Thyroid Comments:Mother. Status:Active Unknown Family Member Name Dates Details Cancer Comments:mother- thyroid Status:Active Diabetes Comments:father and grandpar ent Status:Active Emotional/Anxiety/Depression /Suicide Comments:father Status:Active Heart/Lung Disease Comments:Father and grandpar ent Status:Active High Cholesterol Comments:father mother and g randparent Status:Active HTN Comments:father and grandpar ent Status:Active Thyroid Comments:Mother. Status:Active Unknown Family Member Name Dates Details Cancer Comments:mother- thyroid Status:Active Diabetes Comments:father and grandpar ent Status:Active Emotional/Anxiety/Depression /Suicide Comments:father Status:Active Heart/Lung Disease Comments:Father and grandpar ent Status:Active High Cholesterol Comments:father mother and g randparent Status:Active HTN Comments:father and grandpar ent Status:Active Thyroid Comments:Mother. Status:Active Unknown Family Member Name Dates Details Cancer Comments:mother- thyroid Status:Active Diabetes Comments:father and grandpar ent Status:Active Emotional/Anxiety/Depression /Suicide Comments:father Status:Active Heart/Lung Disease Comments:Father and grandpar ent Status:Active High Cholesterol Comments:father mother and g randparent Status:Active HTN Comments:father and grandpar ent Status:Active Thyroid Comments:Mother. Status:Active Unknown Family Member Name Dates Details Cancer Comments:mother- thyroid Status:Active Diabetes Comments:father and grandpar ent Status:Active Emotional/Anxiety/Depression /Suicide Comments:father Status:Active Heart/Lung Disease Comments:Father and grandpar ent Status:Active High Cholesterol Comments:father mother and g randparent Status:Active HTN Comments:father and grandpar ent Status:Active Thyroid Comments:Mother. Status:Active Unknown Family Member Name Dates Details Cancer Comments:mother- thyroid Status:Active Diabetes Comments:father and grandpar ent Status:Active Emotional/Anxiety/Depression /Suicide Comments:father Status:Active Heart/Lung Disease Comments:Father and grandpar ent Status:Active High Cholesterol Comments:father mother and g randparent Status:Active HTN Comments:father and grandpar ent Status:Active Thyroid Comments:Mother. Status:Active Unknown Family Member Name Dates Details Cancer Comments:mother- thyroid Status:Active Diabetes Comments:father and grandpar ent Status:Active Emotional/Anxiety/Depression /Suicide Comments:father Status:Active Heart/Lung Disease Comments:Father and grandpar ent Status:Active High Cholesterol Comments:father mother and g randparent Status:Active HTN Comments:father and grandpar ent Status:Active Thyroid Comments:Mother. Status:Active Unknown Family Member Name Dates Details Cancer Comments:mother- thyroid Status:Active Diabetes Comments:father and grandpar ent Status:Active Emotional/Anxiety/Depression /Suicide Comments:father Status:Active Heart/Lung Disease Comments:Father and grandpar ent Status:Active High Cholesterol Comments:father mother and g randparent Status:Active HTN Comments:father and grandpar ent Status:Active Thyroid Comments:Mother. Status:Active Unknown Family Member Name Dates Details Cancer Comments:mother- thyroid Status:Active Diabetes Comments:father and grandpar ent Status:Active Emotional/Anxiety/Depression /Suicide Comments:father Status:Active Heart/Lung Disease Comments:Father and grandpar ent Status:Active High Cholesterol Comments:father mother and g randparent Status:Active HTN Comments:father and grandpar ent Status:Active Thyroid Comments:Mother. Status:Active Unknown Family Member Name Dates Details Cancer Comments:mother- thyroid Status:Active Diabetes Comments:father and grandpar ent Status:Active Emotional/Anxiety/Depression /Suicide Comments:father Status:Active Heart/Lung Disease Comments:Father and grandpar ent Status:Active High Cholesterol Comments:father mother and g randparent Status:Active HTN Comments:father and grandpar ent Status:Active Thyroid Comments:Mother. Status:Active Unknown Family Member Name Dates Details Cancer Comments:mother- thyroid Status:Active Diabetes Comments:father and grandpar ent Status:Active Emotional/Anxiety/Depression /Suicide Comments:father Status:Active Heart/Lung Disease Comments:Father and grandpar ent Status:Active High Cholesterol Comments:father mother and g randparent Status:Active HTN Comments:father and grandpar ent Status:Active Thyroid Comments:Mother. Status:Active Unknown Family Member Name Dates Details Cancer Comments:mother- thyroid Status:Active Diabetes Comments:father and grandpar ent Status:Active Emotional/Anxiety/Depression /Suicide Comments:father Status:Active Heart/Lung Disease Comments:Father and grandpar ent Status:Active High Cholesterol Comments:father mother and g randparent Status:Active HTN Comments:father and grandpar ent Status:Active Thyroid Comments:Mother. Status:Active Unknown Family Member Name Dates Details Cancer Comments:mother- thyroid Status:Active Diabetes Comments:father and grandpar ent Status:Active Emotional/Anxiety/Depression /Suicide Comments:father Status:Active Heart/Lung Disease Comments:Father and grandpar ent Status:Active High Cholesterol Comments:father mother and g randparent Status:Active HTN Comments:father and grandpar ent Status:Active Thyroid Comments:Mother. Status:Active Unknown Family Member Name Dates Details Cancer Comments:mother- thyroid Status:Active Diabetes Comments:father and grandpar ent Status:Active Emotional/Anxiety/Depression /Suicide Comments:father Status:Active Heart/Lung Disease Comments:Father and grandpar ent Status:Active High Cholesterol Comments:father mother and g randparent Status:Active HTN Comments:father and grandpar ent Status:Active Thyroid Comments:Mother. Status:Active Unknown Family Member Name Dates Details Cancer Comments:mother- thyroid Status:Active Diabetes Comments:father and grandpar ent Status:Active Emotional/Anxiety/Depression /Suicide Comments:father Status:Active Heart/Lung Disease Comments:Father and grandpar ent Status:Active High Cholesterol Comments:father mother and g randparent Status:Active HTN Comments:father and grandpar ent Status:Active Thyroid Comments:Mother. Status:Active Unknown Family Member Name Dates Details Cancer Comments:mother- thyroid Status:Active Diabetes Comments:father and grandpar ent Status:Active Emotional/Anxiety/Depression /Suicide Comments:father Status:Active Heart/Lung Disease Comments:Father and grandpar ent Status:Active High Cholesterol Comments:father mother and g randparent Status:Active HTN Comments:father and grandpar ent Status:Active Thyroid Comments:Mother. Status:Active Unknown Family Member Name Dates Details Cancer Comments:mother- thyroid Status:Active Diabetes Comments:father and grandpar ent Status:Active Emotional/Anxiety/Depression /Suicide Comments:father Status:Active Heart/Lung Disease Comments:Father and grandpar ent Status:Active High Cholesterol Comments:father mother and g randparent Status:Active HTN Comments:father and grandpar ent Status:Active Thyroid Comments:Mother. Status:Active Unknown Family Member Name Dates Details Cancer Comments:mother- thyroid Status:Active Diabetes Comments:father and grandpar ent Status:Active Emotional/Anxiety/Depression /Suicide Comments:father Status:Active Heart/Lung Disease Comments:Father and grandpar ent Status:Active High Cholesterol Comments:father mother and g randparent Status:Active HTN Comments:father and grandpar ent Status:Active Thyroid Comments:Mother. Status:Active Unknown Family Member Name Dates Details Cancer Comments:mother- thyroid Status:Active Diabetes Comments:father and grandpar ent Status:Active Emotional/Anxiety/Depression /Suicide Comments:father Status:Active Heart/Lung Disease Comments:Father and grandpar ent Status:Active High Cholesterol Comments:father mother and g randparent Status:Active HTN Comments:father and grandpar ent Status:Active Thyroid Comments:Mother. Status:Active Unknown Family Member Name Dates Details Cancer Comments:mother- thyroid Status:Active Diabetes Comments:father and grandpar ent Status:Active Emotional/Anxiety/Depression /Suicide Comments:father Status:Active Heart/Lung Disease Comments:Father and grandpar ent Status:Active High Cholesterol Comments:father mother and g randparent Status:Active HTN Comments:father and grandpar ent Status:Active Thyroid Comments:Mother. Status:Active Unknown Family Member Name Dates Details Cancer Comments:mother- thyroid Status:Active Diabetes Comments:father and grandpar ent Status:Active Emotional/Anxiety/Depression /Suicide Comments:father Status:Active Heart/Lung Disease Comments:Father and grandpar ent Status:Active High Cholesterol Comments:father mother and g randparent Status:Active HTN Comments:father and grandpar ent Status:Active Thyroid Comments:Mother. Status:Active Unknown Family Member Name Dates Details Cancer Comments:mother- thyroid Status:Active Diabetes Comments:father and grandpar ent Status:Active Emotional/Anxiety/Depression /Suicide Comments:father Status:Active Heart/Lung Disease Comments:Father and grandpar ent Status:Active High Cholesterol Comments:father mother and g randparent Status:Active HTN Comments:father and grandpar ent Status:Active Thyroid Comments:Mother. Status:Active Unknown Family Member Name Dates Details Cancer Comments:mother- thyroid Status:Active Diabetes Comments:father and grandpar ent Status:Active Emotional/Anxiety/Depression /Suicide Comments:father Status:Active Heart/Lung Disease Comments:Father and grandpar ent Status:Active High Cholesterol Comments:father mother and g randparent Status:Active HTN Comments:father and grandpar ent Status:Active Thyroid Comments:Mother. Status:Active Unknown Family Member Name Dates Details Cancer Comments:mother- thyroid Status:Active Diabetes Comments:father and grandpar ent Status:Active Emotional/Anxiety/Depression /Suicide Comments:father Status:Active Heart/Lung Disease Comments:Father and grandpar ent Status:Active High Cholesterol Comments:father mother and g randparent Status:Active HTN Comments:father and grandpar ent Status:Active Thyroid Comments:Mother. Status:Active Unknown Family Member Name Dates Details Cancer Comments:mother- thyroid Status:Active Diabetes Comments:father and grandpar ent Status:Active Emotional/Anxiety/Depression /Suicide Comments:father Status:Active Heart/Lung Disease Comments:Father and grandpar ent Status:Active High Cholesterol Comments:father mother and g randparent Status:Active HTN Comments:father and grandpar ent Status:Active Thyroid Comments:Mother. Status:Active Unknown Family Member Name Dates Details Cancer Comments:mother- thyroid Status:Active Diabetes Comments:father and grandpar ent Status:Active Emotional/Anxiety/Depression /Suicide Comments:father Status:Active Heart/Lung Disease Comments:Father and grandpar ent Status:Active High Cholesterol Comments:father mother and g randparent Status:Active HTN Comments:father and grandpar ent Status:Active Thyroid Comments:Mother. Status:Active Instructions Name Dates Details How to access health informa tion online Indication:Anxiety and depression Start:08-Nov-2019 Instruction Type:Patient Education How to access health informa tion online - Detail Indication:Anxiety and depression Start:08-Nov-2019 Instruction Type:Patient Education Patient Instructions Indication:Anxiety and depression Start:08-Nov-2019 Instruction Type:Provider Instructions for Treatment Name Dates Details How to access health informa tion online Indication:Anxiety and depression Start:08-Nov-2019 Instruction Type:Patient Education How to access health informa tion online - Detail Indication:Anxiety and depression Start:08-Nov-2019 Instruction Type:Patient Education Patient Instructions Indication:Anxiety and depression Start:08-Nov-2019 Instruction Type:Provider Instructions for Treatment Name Dates Details How to access health informa tion online Indication:Anxiety and depression Start:08-Nov-2019 Instruction Type:Patient Education How to access health informa tion online - Detail Indication:Anxiety and depression Start:08-Nov-2019 Instruction Type:Patient Education Patient Instructions Indication:Anxiety and depression Start:08-Nov-2019 Instruction Type:Provider Instructions for Treatment Name Dates Details How to access health informa tion online Indication:Anxiety and depression Start:08-Nov-2019 Instruction Type:Patient Education How to access health informa tion online - Detail Indication:Anxiety and depression Start:08-Nov-2019 Instruction Type:Patient Education Patient Instructions Indication:Anxiety and depression Start:08-Nov-2019 Instruction Type:Provider Instructions for Treatment Name Dates Details How to access health informa tion online Indication:Nonsmoker Start:25-Nov-2019 Instruction Type:Patient Education How to access health informa tion online - Detail Indication:Nonsmoker Start:25-Nov-2019 Instruction Type:Patient Education Patient Instructions Indication:BMI 26.0-26.9,adult Start:25-Nov-2019 Instruction Type:Provider Instructions for Treatment How to access health informa tion online Indication:Anxiety and depression Start:08-Nov-2019 Instruction Type:Patient Education How to access health informa tion online - Detail Indication:Anxiety and depression Start:08-Nov-2019 Instruction Type:Patient Education Patient Instructions Indication:Anxiety and depression Start:08-Nov-2019 Instruction Type:Provider Instructions for Treatment Name Dates Details How to access health informa tion online Indication:Nonsmoker Start:25-Nov-2019 Instruction Type:Patient Education How to access health informa tion online - Detail Indication:Nonsmoker Start:25-Nov-2019 Instruction Type:Patient Education Patient Instructions Indication:BMI 26.0-26.9,adult Start:25-Nov-2019 Instruction Type:Provider Instructions for Treatment How to access health informa tion online Indication:Anxiety and depression Start:08-Nov-2019 Instruction Type:Patient Education How to access health informa tion online - Detail Indication:Anxiety and depression Start:08-Nov-2019 Instruction Type:Patient Education Patient Instructions Indication:Anxiety and depression Start:08-Nov-2019 Instruction Type:Provider Instructions for Treatment Name Dates Details How to access health informa tion online Indication:ADD (attention deficit disorder) Start:02-Dec-2019 Instruction Type:Patient Education How to access health informa tion online - Detail Indication:ADD (attention deficit disorder) Start:02-Dec-2019 Instruction Type:Patient Education Patient Instructions Indication:ADD (attention deficit disorder) Start:02-Dec-2019 Instruction Type:Provider Instructions for Treatment How to access health informa tion online Indication:Nonsmoker Start:25-Nov-2019 Instruction Type:Patient Education How to access health informa tion online - Detail Indication:Nonsmoker Start:25-Nov-2019 Instruction Type:Patient Education Patient Instructions Indication:BMI 26.0-26.9,adult Start:25-Nov-2019 Instruction Type:Provider Instructions for Treatment How to access health informa tion online Indication:Anxiety and depression Start:08-Nov-2019 Instruction Type:Patient Education How to access health informa tion online - Detail Indication:Anxiety and depression Start:08-Nov-2019 Instruction Type:Patient Education Patient Instructions Indication:Anxiety and depression Start:08-Nov-2019 Instruction Type:Provider Instructions for Treatment Name Dates Details How to access health informa tion online Indication:ADD (attention deficit disorder) Start:02-Dec-2019 Instruction Type:Patient Education How to access health informa tion online - Detail Indication:ADD (attention deficit disorder) Start:02-Dec-2019 Instruction Type:Patient Education Patient Instructions Indication:ADD (attention deficit disorder) Start:02-Dec-2019 Instruction Type:Provider Instructions for Treatment How to access health informa tion online Indication:Nonsmoker Start:25-Nov-2019 Instruction Type:Patient Education How to access health informa tion online - Detail Indication:Nonsmoker Start:25-Nov-2019 Instruction Type:Patient Education Patient Instructions Indication:BMI 26.0-26.9,adult Start:25-Nov-2019 Instruction Type:Provider Instructions for Treatment How to access health informa tion online Indication:Anxiety and depression Start:08-Nov-2019 Instruction Type:Patient Education How to access health informa tion online - Detail Indication:Anxiety and depression Start:08-Nov-2019 Instruction Type:Patient Education Patient Instructions Indication:Anxiety and depression Start:08-Nov-2019 Instruction Type:Provider Instructions for Treatment Name Dates Details How to access health informa tion online Indication:Nonsmoker Start:25-Nov-2019 Instruction Type:Patient Education How to access health informa tion online - Detail Indication:Nonsmoker Start:25-Nov-2019 Instruction Type:Patient Education Patient Instructions Indication:Nonsmoker Start:25-Nov-2019 Instruction Type:Provider Instructions for Treatment How to access health informa tion online Indication:Anxiety and depression Start:08-Nov-2019 Instruction Type:Patient Education How to access health informa tion online - Detail Indication:Anxiety and depression Start:08-Nov-2019 Instruction Type:Patient Education Patient Instructions Indication:Anxiety and depression Start:08-Nov-2019 Instruction Type:Provider Instructions for Treatment Name Dates Details Patient Instructions Indication:ADD (attention deficit disorder) Start:08-Jun-2020 Instruction Type:Provider Instructions for Treatment How to Access Health Informa tion Online using Patient Portal and [employer]rd [employer] Apps Indication:ADD (attention deficit disorder) Start:08-Jun-2020 Instruction Type:Patient Education How to access health informa tion online Indication:ADD (attention deficit disorder) Start:02-Dec-2019 Instruction Type:Patient Education How to access health informa tion online - Detail Indication:ADD (attention deficit disorder) Start:02-Dec-2019 Instruction Type:Patient Education Patient Instructions Indication:ADD (attention deficit disorder) Start:02-Dec-2019 Instruction Type:Provider Instructions for Treatment How to access health informa tion online Indication:Nonsmoker Start:25-Nov-2019 Instruction Type:Patient Education How to access health informa tion online - Detail Indication:Nonsmoker Start:25-Nov-2019 Instruction Type:Patient Education Patient Instructions Indication:BMI 26.0-26.9,adult Start:25-Nov-2019 Instruction Type:Provider Instructions for Treatment How to access health informa tion online Indication:Anxiety and depression Start:08-Nov-2019 Instruction Type:Patient Education How to access health informa tion online - Detail Indication:Anxiety and depression Start:08-Nov-2019 Instruction Type:Patient Education Patient Instructions Indication:Anxiety and depression Start:08-Nov-2019 Instruction Type:Provider Instructions for Treatment Name Dates Details Patient Instructions Indication:ADD (attention deficit disorder) Start:08-Jun-2020 Instruction Type:Provider Instructions for Treatment How to Access Health Informa tion Online using Patient Portal and [employer] Apps Indication:ADD (attention deficit disorder) Start:08-Jun-2020 Instruction Type:Patient Education How to access health informa tion online Indication:ADD (attention deficit disorder) Start:02-Dec-2019 Instruction Type:Patient Education How to access health informa tion online - Detail Indication:ADD (attention deficit disorder) Start:02-Dec-2019 Instruction Type:Patient Education Patient Instructions Indication:ADD (attention deficit disorder) Start:02-Dec-2019 Instruction Type:Provider Instructions for Treatment How to access health informa tion online Indication:Nonsmoker Start:25-Nov-2019 Instruction Type:Patient Education How to access health informa tion online - Detail Indication:Nonsmoker Start:25-Nov-2019 Instruction Type:Patient Education Patient Instructions Indication:BMI 26.0-26.9,adult Start:25-Nov-2019 Instruction Type:Provider Instructions for Treatment How to access health informa tion online Indication:Anxiety and depression Start:08-Nov-2019 Instruction Type:Patient Education How to access health informa tion online - Detail Indication:Anxiety and depression Start:08-Nov-2019 Instruction Type:Patient Education Patient Instructions Indication:Anxiety and depression Start:08-Nov-2019 Instruction Type:Provider Instructions for Treatment Name Dates Details How to access health informa tion online Indication:ADD (attention deficit disorder) Start:02-Dec-2019 Instruction Type:Patient Education How to access health informa tion online - Detail Indication:ADD (attention deficit disorder) Start:02-Dec-2019 Instruction Type:Patient Education Patient Instructions Indication:ADD (attention deficit disorder) Start:02-Dec-2019 Instruction Type:Provider Instructions for Treatment How to access health informa tion online Indication:Nonsmoker Start:25-Nov-2019 Instruction Type:Patient Education How to access health informa tion online - Detail Indication:Nonsmoker Start:25-Nov-2019 Instruction Type:Patient Education Patient Instructions Indication:BMI 26.0-26.9,adult Start:25-Nov-2019 Instruction Type:Provider Instructions for Treatment How to access health informa tion online Indication:Anxiety and depression Start:08-Nov-2019 Instruction Type:Patient Education How to access health informa tion online - Detail Indication:Anxiety and depression Start:08-Nov-2019 Instruction Type:Patient Education Patient Instructions Indication:Anxiety and depression Start:08-Nov-2019 Instruction Type:Provider Instructions for Treatment Summary Purpose Advance Directives No Advanced Directives Records FoundNo Advanced Directives Records FoundNo Advanced Directives Records Found Additional Source Comments INFORMATION SOURCE (unrecogn ized section and content) DATE CREATED AUTHOR AUTHOR'S ORGANIZ ATION 02/21/2022 [facility] DATE CREATED AUTHOR AUTHOR'S ORGANIZ ATION 07/08/2022 [facility] Source Comments (unrecognize d section and content) In the event this informatio n is protected by the Federal Confidentiality of Alcohol and Drug Abuse Patient Records regulations: The Federal rules restrict any use of the information to criminally investigate or prosecute any alcohol or drug abuse patient.[facility] Reason for Visit (unrecogniz ed section and content) FOR RECORDS PERTAINING TO PATIENTS WHO ARE OR HAVE BEEN ENROLLED IN A CHEMICAL DEPENDENCY/SUBSTANCEABUSE PROGRAM, SOME INFORMATION MAY BE OMITTED. This clinical summary was aggregated from multiple sources. Caution should be exercised in using it in the provision of clinical care. This summary normalizes information from multiple sources, and as a consequence, information in this document may materially change the coding, format and clinical context of patient data. In addition, data may be omitted in some cases. CLINICAL DECISIONS SHOULD BE BASED ON THE PRIMARY CLINICAL RECORDS. [facility]. provides no warranty or guarantee of the accuracy or completeness of information in this document.
== END | disposition home or self-care (01) ==
LOC: LABSPEC 15:19
PROVIDERS: PCP Nurse Practitioner Family; Referring Provider Nurse Practitioner Family; Visit Provider Nurse Practitioner Family
DX: J02.9 Acute pharyngitis, unspecified (principal)
CPT/HCPCS: 87651

== ENCOUNTER 2024-03-01 08:56 | Emergency (ER) | payer OTHER, SELFPAY ==
[2024-03-01 08:57] VITALS: BP 116/80; PULSE 100; RESP 16; TEMP 37; O2SAT 98; BMI 35.4
--- NOTE | 2024-03-01 09:09 | ED.VIS.FEGU ---
HPI HPI - Female History of Present Illness Chief Complaint: Vag Bld, Preg Narrative Narrative: 33-year-old female, at approximately 4 weeks gestation, last menses the beginning of January, almost 2 months ago, presents with cramping and vaginal bleeding. She relates history that she did a home test that was positive. She scheduled an appointment with her SERVICE CREW SUPERVISOR at the [facility] but has not seen them yet. Approximately 2 days ago she began having pelvic cramping. It was more intense yesterday evening. This morning she awoke and was having vaginal bleeding similar to her previous menses. She denies any chest pain or shortness of breath, no lightheadedness. No exacerbating or alleviating factors. She also has an ovarian cyst on the right. She states that her first was in her words a medical , and her second was intrauterine demise, and she had a D&C. She states that she is unsure of her blood type but denies receiving RhoGAM. PFSH PFSH Allergy/AdvReac Type Severity Reaction Status Date / Time Penicillins (PCN) Allergy Intermediate Hives Verified 03/01/24 08:56 Social History Smoking Status: Never smoker ROS ROS ED ROS Narrative Constitutional: No fever, no chills. HEENT: No sore throat. No neck pain. No loss of vision. No rhinorrhea. Cardiovascular: No chest pain. No palpitations. No pedal edema. Respiratory: No cough, no shortness of breath. Abdominal: Right-sided abdominal pain. No nausea. No vomiting. Genitourinary: No dysuria. No hematuria. Positive pelvic cramping and vaginal bleeding. Musculoskeletal: No myalgias. No arthralgias. Neurologic: No headaches but positive history of migraines for which she takes sumatriptan. No dizziness. No lightheadedness. EXAM Physical Exam Narrative Exam Narrative: Afebrile. Vital signs noted. Nontoxic-appearing. Cardiovascular examination reveals a regular rate and rhythm. Lungs are clear to auscultation bilaterally. Abdomen is soft and nontender with positive bowel sounds, no guarding or rebound. Neurological examination is nonfocal and nonlateralizing. Ambulatory in ED and able to change into gown, and transfer to cot independently. Chaperoned pelvic examination shows a small amount of old blood in the vaginal vault with slight bleeding from the os. No cervical motion tenderness. Const Vital Signs: 03/01/24 08:57 03/01/24 10:56 Temperature 98.6 F Temperature Source Oral Pulse Rate 100 78 Respiratory Rate 16 19 H Blood Pressure 116/80 116/79 Blood Pressure Mean 92 91 Pulse Ox 98 Oxygen Delivery Method Room Air MDM MDM MDM Narrative Medical decision making narrative: The differential diagnosis includes but not limited to threatened miscarriage versus complete miscarriage versus ovarian cyst rupture versus ectopic . Comprehensive workup was pursued including chaperoned pelvic examination. I reviewed the patient's laboratory work from today and she has normal white count of 6.5, hemoglobin 13.8, hematocrit 40.8, platelet count 290. CMP is remarkable for chloride of 108 which I think is nonspecific, normal BUN of 9 and creatinine 0.85. Glucose appropriately elevated at 98. Serum test was canceled., In review of her beta-hCG, it is only 2. She relates history that on Monday, 5 days ago, they had performed 2 different home test that were positive. She started having cramping 2 days ago, then last night had the vaginal bleeding. Given that her beta-hCG is in the non range, it was either 2 false positives versus complete miscarriage. Ultrasound non was performed and there is no ovarian cyst but no fluid in the cul-de-sac, endometrial stripe is slightly thickened. At this point in time, I do have very low concern for ectopic . I did discuss the patient with the certified nurse roof bolter operator, Asmita Turk with [facility] who agrees with close outpatient follow-up. Patient is to report on Monday to the [facility] [employer] SUPERVISOR for repeat quantitative beta-hCG. As long as it is not elevated, would probably be presumed that she did not have that elevated of her hormone level to begin with. Regardless, she will return with increased vaginal bleeding, new or worsening symptoms. Patient motivated for discharge. Return instructions reviewed disposition is discharged home in stable condition. History & Record Review Discussion w/independent historian: Patient Lab Data Attestation: I reviewed the patient's lab results. Labs: Laboratory Results - last 24 hr 03/01/24 03/01/24 09:16 09:27 WBC 6.5 RBC 4.43 Hgb 13.8 Hct 40.8 MCV 92.1 MCH 31.2 MCHC 33.8 RDW Std Deviation 42.4 RDW Coeff of Sha 12.6 Plt Count 290 MPV 8.9 Immature Gran % (Auto) 0.600 Neut % (Auto) 65.1 Lymph % (Auto) 25.1 Cooper % (Auto) 7.6 Eos % (Auto) 0.8 Baso % (Auto) 0.8 Absolute Neuts (auto) 4.2 Absolute Lymphs (auto) 1.63 Nucleated RBC % 0 Sodium 139 Potassium 3.9 Chloride 108 H Carbon Dioxide 24.0 Anion Gap 7 BUN 9 Creatinine 0.85 Estim Creat Clear Calc 109.99 Est GFR (MDRD) Af Amer 97 Est GFR (MDRD) Non-Af 80 BUN/Creatinine Ratio 10.6 Glucose 98 Calcium 8.9 Total Bilirubin 0.40 AST 15 ALT 18 Alkaline Phosphatase 75 Total Protein 7.5 Albumin 3.6 Globulin 3.9 Albumin/Globulin Ratio 0.9 HCG, Quant 2 Serum , Qual Cancelled Urine Color Yellow Urine Clarity Clear Urine pH 7.0 Ur Specific [place] 1.030 Urine Protein 15 H Urine Glucose (UA) Normal Urine Ketones Negative Urine Occult Blood 150 H Urine Nitrite Negative Urine Bilirubin Negative Urine Urobilinogen Normal Ur Leukocyte Esterase 25 H Urine RBC 5-10 SEEN Urine WBC 0 SEEN Ur Squamous Epith Cells 0-5 SEEN Urine Bacteria 0 SEEN Urine Mucus 1+ Blood Type O POSITIVE Radiography Diagnostic Testing: Clinical Impression(s) from Imaging Studies Transvaginal US 03/01/24 10:10 IMPRESSION: Normal female pelvis. Electronically Signed: Peyman Dey MD at 11:57 EST , Discharge Plan Triage Chief Complaint: Vag Bld, Preg ED Provider: Daniel Johnson Dx/Rx/DC Orders Clinical Impression: Complete miscarriage, Vaginal bleeding, Ovarian cyst Instructions: ED Miscarriage Spontaneous, ED Ovarian Cyst Primary Care Provider: Sarah Moe Referrals: Sarah Moe NP-C [Primary Care Provider] - Activity Restrictions/Additional Instructions: Follow-up with [facility] SERVICE CREW SUPERVISOR on Monday for repeat beta quantitative measurement. Return to the emergency department with increased pain, fever, increased vaginal bleeding, new or worsening symptoms. Print Language: Guyanese Disposition Disposition: Home, Self Care
[2024-03-01 09:34] LABS: Absolute Lymphocyte Count 1.63 X10^3/uL (0.83-4.51); Absolute Neutrophil Count 4.2 X10^3/uL (2.0-7.7); Basophil# 0.05 X10^3/uL; Basophil% 0.8 % (0-1); Eosinophil# 0.05 X10^3/uL; Eosinophils% 0.8 % (0-5); Hematocrit 40.8 % (37-47); Hemoglobin 13.8 g/dL (12.0-15.0); Lymphocyte # 1.63 X10^3/ul (0.83-4.51); Lymphocyte % 25.1 % (19-41); Mean Corp Hgb Conc 33.8 g/dL (32-36); Mean Corpuscular Hgb 31.2 pg (27.0-32.0); Mean Corpuscular Volume 92.1 fL (81-99); Mean Platelet Vol. 8.9 fl (6.2-12.0); Monocyte# 0.49 X10^3/uL; Monocyte% 7.6 % (0-10); NRBC Flagged by Analyzer 0 % (0-5); Neutrophil # 4.23 X10^3/uL (2.7-7.7); Neutrophil % 65.1 % (47-70); Platelet Count 290 K/mm3 (150-450); RBC Distribution Width CV 12.6 % (11.6-14.6); RBC Distribution Width SD 42.4 fl (35.1-43.9); Red Blood Count 4.43 M/mm3 (4.2-5.4); White Blood Count 6.5 K/mm3 (4.4-11.0)
[2024-03-01 09:42] LABS: ALB/GLOB Ratio 0.9 RATIO (0.9-2.4); AST(SGOT) 15 U/L (15-37); Alanine Aminotransfer ALT/SGPT 18 U/L (13-56); Albumin, Serum 3.6 g/dL (3.2-5.0); Alkaline Phosphatase 75 U/L (45-117); Anion Gap 7 (5-15); BUN 9 mg/dL (7-18); BUN/Creat Ratio 10.6 RATIO (10-20); Calcium,Total 8.9 mg/dL (8.5-10.1); Chloride 108 mmol/L (98-107); Creatinine, Serum 0.85 mg/dL (0.55-1.02); EST Glomerular Filtration Rate 80 mL/min (>60); Est Glom Filt Rate - Afr Amer 97 mL/min (>60); Estimated Creatinine Clearance 109.99 ml/min; Globulin 3.9 g/dL (2.2-4.2); Glucose 98 mg/dL (74-106); Potassium 3.9 mmol/L (3.5-5.1); Protein, Total 7.5 g/dL (6.4-8.2); Sodium Level 139 mmol/L (136-145)
[2024-03-01 09:43] LABS: hCG Titer Quant., Serum 2 mIU/mL (1-3)
[2024-03-01 09:43] LABS: Bacteria 0 SEEN /hpf (None Seen); White Blood Cells 0 SEEN /hpf (0-5)
[2024-03-01 09:45] LABS: Color, Urine Yellow (Yellow); Glucose, Dipstick Normal (Normal); Ketone-Dipstick Negative (Negative); Leukocyte Esterase-Dipstick 25 /ul (Negative); Nitrite-Dipstick Negative (Negative); Occult Blood-Urine 150 /ul (Negative); Protein-Dipstick 15 mg/dl (Negative); Urine Bilirubin Dipstick Negative (Negative); Urine Clarity Clear (Clear); Urine Urobilinogen Normal (Normal)
[2024-03-01 09:56] LABS: Red Blood Cells-Urine 5-10 SEEN /hpf (0-5)
[2024-03-01 09:57] LABS: Mucous, Urine 1+ /hpf (<or=2+); Squamous Epithelial Cells - UA 0-5 SEEN /hpf (5-10)
--- NOTE | 2024-03-01 10:10 | US_ITS ---
s STUDY: ULTRASOUND OF THE FEMALE PELVIS - REASON FOR EXAM: Female, 33 years old. Pain. LMP: January 29, 2024. TECHNIQUE: Transvaginal TECHNICAL QUALITY: Adequate. COMPARISON: None. FINDINGS: The uterus is anteverted and is in a midline position. The uterus measures 8.0 x 4.4 x 3.6 cm. Normal uterine cervix. The endometrium measures 5 mm in thickness, and is hyperechoic. There is no demonstrated endometrial mass. There is no demonstrated myometrial mass. I.U.D. - The patient does not have an I.U.D. The right ovary is visualized. The right ovary measures 2.1 x 1.6 x 1.4 cm. There is no right ovarian cyst or ovarian mass. There is no visualized right adnexal mass or complex lesion. There is normal arterial and normal venous vascularity. The left ovary is visualized. The left ovary measures 3.0 x 2.0 x 2.0 cm. There is no left ovarian cyst or ovarian mass. There is no visualized left adnexal mass or complex lesion. There is normal arterial and normal venous vascularity. There is no fluid in the cul-de-sac. US/Transvaginal Non- IMPRESSION: Normal female pelvis. Electronically Signed: Peyman Dey MD at 11:57 EST ,
[2024-03-01 10:56] VITALS: BP 116/79; PULSE 78; RESP 19
[2024-03-01 12:27] VITALS: BP 110/78; PULSE 77; RESP 18; TEMP 36.8; O2SAT 97
== END 2024-03-01 12:28 | disposition home or self-care (01) ==
PROVIDERS: Emergency Provider Emergency Medicine; PCP Nurse Practitioner Family; Visit Provider Emergency Medicine
DX: O03.9 Complete or unspecified spontaneous abortion without complication (principal); N83.209 Unspecified ovarian cyst, unspecified side; N93.9 Abnormal uterine and vaginal bleeding, unspecified
CPT/HCPCS: 76830; 80053; 81001; 84702; 85025; 86900; 86901; 99282; A4216

== ENCOUNTER → 2025-02-17 | Outpatient (CLI) | payer OTHER, SELFPAY ==
[2025-02-22 08:42] LABS: HPV APTIMA, High Risk Negative
== END | disposition home or self-care (01) ==
LOC: LABSPEC 16:21
PROVIDERS: PCP Nurse Practitioner Family; Referring Provider Nurse Practitioner Family; Visit Provider Nurse Practitioner Family
DX: Z00.00 Encounter for general adult medical examination without abnormal findings (principal)
CPT/HCPCS: 87624; 88175; G0145